=== PATIENT | female | born 1940 | race Caucasian/White ===

== ENCOUNTER 2017-05-02 06:55 | Outpatient (CLI) | payer MEDICARE ==
[~2017-05-02] VITALS: Ht 165.1 cm; Wt 78.9 kg
[~2017-05-02 06:55] MED LIST: ATOR20TA PO; CALC500T54 PO; CELE200C PO; IRON18TA PO; LISI10TA2 PO; LOVA40TA2 PO; MAGN400T3 PO; MELO15TA23 PO; MULT-658 PO; OMEP40CA5 PO; PANT40TA3 PO; Sodium Bicarbonate PO; TRIA1CAP3 PO; WARF-78 PO
[2017-05-02] MEDS ORDERED: TRIA50CA PO (07:33)
[2017-05-02] MEDS ORDERED: OMEP40CA5 PO (07:33)
[2017-05-02] MEDS ORDERED: CALC1TAB75 PO (07:33)
[2017-05-02] MEDS ORDERED: LISI-338 PO (07:33)
[2017-05-02] MEDS ORDERED: LOVA40TA2 PO (07:33)
[2017-05-02 07:48] VITALS: BP 130/65
[2017-05-02] MEDS ORDERED: IOHEXOL 300 MG/ML 50 ML VIAL. ONE (07:50)
[2017-05-02] MEDS ORDERED: IOHEXOL 300 MG/ML 50 ML VIAL. INT CAT ONE (08:45)
--- NOTE | 2017-05-03 08:34 | RAD ---
Cholangiogram through pre-existing internal/external biliary drain 05/02/2017 Indication: Evaluate for residual cystic duct stump leak Discussion: Contrast was administered through the pre-existing internal/external drain under fluoroscopy. No evidence of cystic duct leak is identified. No evidence of other biliary leak is seen. Mild dilatation of the biliary tree appears to persist. Mild filling defects are present within the common bile duct, which could represent small stones or inspissated sludge. The latter is favored. This appears to be new since prior exam. Contrast is seen flowing through the catheter into the duodenum and also small amount of contrast is noted extending along the catheter through the distal common bile duct. We will cap the drainage she developed abdominal pain or fever. Patient should return in approximately one to 2 weeks for removal of the catheter over a wire, and a cholangiogram at that time to ensure distal common bile duct drainage and resolution of sludge within the common bile duct. Fluoroscopy time: 1.4 minutes Dose area product 6 lorenz centimeters squared
== END 2017-05-02 09:20 | disposition home or self-care (01) ==
LOC: INTRAD 06:55
PROVIDERS: ATTEND Surgery
DX: K80.50 Calculus of bile duct without cholangitis or cholecystitis without obstruction (principal); E78.00 Pure hypercholesterolemia, unspecified; K21.9 Gastro-esophageal reflux disease without esophagitis; I12.9 Hypertensive chronic kidney disease with stage 1 through stage 4 chronic kidney disease, or unspecified chronic kidney disease; E11.22 Type 2 diabetes mellitus with diabetic chronic kidney disease; N18.9 Chronic kidney disease, unspecified; M19.91 Primary osteoarthritis, unspecified site; Z90.49 Acquired absence of other specified parts of digestive tract; Z98.890 Other specified postprocedural states; Z87.39 Personal history of other diseases of the musculoskeletal system and connective tissue; Z90.710 Acquired absence of both cervix and uterus
CPT/HCPCS: 47531; Q9967

== ENCOUNTER 2017-05-15 07:52 | Outpatient (CLI) | payer MEDICARE ==
[2017-05-15] VITALS (7 sets, daily range): BP systolic 92–136; BP diastolic 46–73
[~2017-05-15 07:52] MED LIST changes: +CALC1TAB75 PO; +LISI-338 PO; +TRIA50CA PO
[2017-05-15] MEDS ORDERED: LIDOCAINE 1% / SOD BICARB 8.4% 20 ML VIAL. IJ ONE ×2 (08:37→08:45)
[2017-05-15] MEDS ORDERED: IOHEXOL 300 MG/ML 50 ML VIAL. ONE (08:37)
[2017-05-15] MEDS ORDERED: IOHEXOL 300 MG/ML 50 ML VIAL. IART ONE (08:45)
[2017-05-15] MEDS ORDERED: fentaNYL PF VIAL 100 MCG/2 ML VIAL ONE (09:10)
[2017-05-15] MEDS ORDERED: fentaNYL PF VIAL 100 MCG/2 ML VIAL IV ONE (09:30)
--- NOTE | 2017-05-17 08:28 | RAD ---
05/15/2017 1. Cholangiogram through pre-existing tube as well as through catheter within the common bile duct 2. Replacement of 10 Italian locking internal/external biliary drain Discussion: The patient is a 77-year-old female status post placement of an internal/external biliary drain for biliary leak at the cystic duct stump. Prior attempted ERCP was unsuccessful due to inability to cannulate the duct. Most recently the patient has been draining internally, with the drain capped. She presents for evaluation of possible drainage removal. The risks and benefits of the procedure were discussed the patient. A timeout procedure was performed. The right upper quadrant was prepped and draped using neck sterile barrier technique. Fluoroscopic evaluation demonstrates expected position of upper quadrant drainage catheter. Contrast was administered to the catheter demonstrated persistent biliary dilatation, particularly involving the common bile duct. There is blunting of the distal common bile duct and contrast does not freely flow from the common bile duct into the duodenum. Findings raise concern for a high-grade distal CBD stricture. An obstructing mass lesion cannot be completely excluded. The pre-existing drainage catheter was removed over a wire. A 7 Italian sheath was placed. Through this sheath a wire and angled catheter were advanced into the common bile duct. Cholangiogram performed from the common bile duct following removal of the drain. Findings appear similar to prior study with obstruction of distal common bile duct. There is mild persistent filling defect in the common bile duct which may represent inspissated sludge. Percutaneous biopsy instrumentation was not available during the exam. 10 Italian internal/external biliary drain was replaced. Findings were called to the referring surgeon. The patient may benefit from a follow-up endoscopy and ERCP with evaluation of the distal common bile duct possible including biopsies. A wire could be advanced through the pre-existing drainage catheter into the duodenum and a rendezvous procedure as necessary, as prior cannulation of the bile duct was difficult. FLUORO TIME: 8.2 MIN DOSE: 22 Gycm2 Impression: Distal common bile obstruction without free flow of contrast into the duodenum. Based on available imaging both benign and malignant strictures or possible. Internal/external drain was replaced. Consider endoscopy and ERCP for further evaluation as described. This could be performed as rendezvous procedure as described.
== END 2017-05-15 11:10 | disposition home or self-care (01) ==
LOC: INTRAD 07:52
PROVIDERS: ATTEND Surgery
DX: K83.8 Other specified diseases of biliary tract (principal); E78.00 Pure hypercholesterolemia, unspecified; I12.9 Hypertensive chronic kidney disease with stage 1 through stage 4 chronic kidney disease, or unspecified chronic kidney disease; E11.22 Type 2 diabetes mellitus with diabetic chronic kidney disease; N18.9 Chronic kidney disease, unspecified; M19.91 Primary osteoarthritis, unspecified site; D64.9 Anemia, unspecified; Z90.49 Acquired absence of other specified parts of digestive tract; Z98.890 Other specified postprocedural states; Z96.653 Presence of artificial knee joint, bilateral; Z96.642 Presence of left artificial hip joint; Z90.710 Acquired absence of both cervix and uterus
CPT/HCPCS: 47536; A4215; C1729; C1894; J0690; J1644; J3010; Q9967

== ENCOUNTER 2018-08-30 12:07 | Inpatient (IN) | payer MEDICARE ==
[~2018-08-30] VITALS: Ht 165.1 cm; Wt 83.9 kg
[2018-08-30 12:56] LABS: BASO # 0.1 x10^3/uL (0.0-0.2); BASO % 1 % (0-3); EOS # 0.1 x10^3/uL (0.0-0.7); EOS % 1 % (0-3); HEMATOCRIT 40.1 % (36.0-47.0); HEMOGLOBIN 13.3 g/dL (12.0-15.5); LYMPH % 40 % (24-48); MEAN CORPUSCULAR HEMOGLOBIN 32 pg (25-35); MEAN CORPUSCULAR HGB CONC 33 g/dL (31-37); MEAN CORPUSCULAR VOLUME 97 fL (79-100); MONO # 0.7 x10^3/uL (0.0-1.1); MONO % 7 % (0-9); NEUT # 5.1 x10^3uL (1.8-7.7); NEUT % 51 % (31-73); PLATELET COUNT 239 x10^3/uL (140-400); RED BLOOD COUNT 4.15 x10^6/uL (3.50-5.40); RED CELL DISTRIBUTION WIDTH 14.3 % (11.5-14.5)
[2018-08-30 13:06] LABS: CALCIUM 9.3 mg/dL (8.5-10.1); CREATININE 1.3 mg/dL (0.6-1.0); GFR 39.4; POTASSIUM 4.1 mmol/L (3.5-5.1)
--- NOTE | 2018-08-30 13:10 | PHYS DOC ---
Past Medical History Past Medical History: Anemia, Arthritis, Diabetes-Type II, Glaucoma, High Cholesterol, Hypertension, Other Additional Past Medical Histor: VIT D DIFICIENCY,GASTRIC ULCER, Past Surgical History: Cholecystectomy, Hip Replacement, Hysterectomy, Knee Replacement, Tonsillectomy, Other Additional Past Surgical Histo: CARPEL TUNNEL Alcohol Use: None Drug Use: None Adult General Chief Complaint Chief Complaint: Palpitations HPI HPI Patient is a 78 year old female who presents with episodic palpitations, anorexia, nausea and loose stools x3days. Reports a near syncopal episode today after grocery shopping. She felt a heavy episode of palpitations and then she almost passed out while sitting in her car she did not do so however really she still denying any chest pain No cardiac history or history of similar symptoms. Describes palpitations as feeling as though her heart is "pounding out of her chest." Denies chest pain, shortness of breath, abdominal pain, fever, chills or vomiting. No recent illness or sick contacts. Review of Systems Review of Systems Constitutional: Denies fever or chills [] GI: Denies abdominal pain, nausea, vomiting, bloody stools or diarrhea [] : Denies dysuria or hematuria [] Musculoskeletal: Denies back pain or joint pain [] Integument: Denies rash or skin lesions [] Neurologic: Denies headache, focal weakness or sensory changes [] Endocrine: Denies polyuria or polydipsia [] All other systems were reviewed and found to be within normal limits, except as documented in this note. Current Medications Current Medications Current Medications Medications (Trade) Dose Ordered Sig/[facility] Start Time Stop Time Status Last Admin Dose Admin Metoprolol Tartrate (Lopressor) 50 mg 1X ONCE 08/30/18 13:30 08/30/18 13:31 DC 08/30/18 13:49 50 MG Allergies Allergies Allergies Coded Allergies Type Severity Reaction Last Updated Verified No Known Drug Allergies 03/23/17 No Physical Exam Physical Exam Constitutional: Well developed, well nourished, no acute distress, non-toxic appearance. [] HENT: Normocephalic, atraumatic, bilateral external ears normal, oropharynx moist, no oral exudates, nose normal. [] Eyes: PERRLA, EOMI, conjunctiva normal, no discharge. [] Neck: Normal range of motion, no tenderness, supple, no stridor. [] Cardiovascular:Heart rate irregular rhythm, no murmur []INTERMITTENT TACHYCARDIA ON EXAM. Lungs & Thorax: Bilateral breath sounds clear to auscultation [] Abdomen: Bowel sounds normal, soft, no tenderness, no masses, no pulsatile masses. [] Skin: Warm, dry, no erythema, no rash. [] Back: No tenderness, no CVA tenderness. [] Extremities: No tenderness, no cyanosis, no clubbing, ROM intact, no edema. [] Neurologic: Alert and oriented X 3, normal motor function, normal sensory function, no focal deficits noted. [] Psychologic: Affect normal, judgement normal, mood normal. [] Current Patient Data Vital Signs Vital Signs Date Time Temp Pulse Resp B/P (MAP) Pulse Ox O2 Delivery O2 Flow Rate FiO2 08/30/18 13:49 66 116/63 08/30/18 13:48 18 97 Room Air 08/30/18 12:24 98.6 98.6 Lab Values Laboratory Tests Test 08/30/18 12:30 White Blood Count 10.0 x10^3/uL (4.0-11.0) Red Blood Count 4.15 x10^6/uL (3.50-5.40) Hemoglobin 13.3 g/dL (12.0-15.5) Hematocrit 40.1 % (36.0-47.0) Mean Corpuscular Volume 97 fL (79-100) Mean Corpuscular Hemoglobin 32 pg (25-35) Mean Corpuscular Hemoglobin Concent 33 g/dL (31-37) Red Cell Distribution Width 14.3 % (11.5-14.5) Platelet Count 239 x10^3/uL (140-400) Neutrophils (%) (Auto) 51 % (31-73) Lymphocytes (%) (Auto) 40 % (24-48) Monocytes (%) (Auto) 7 % (0-9) Eosinophils (%) (Auto) 1 % (0-3) Basophils (%) (Auto) 1 % (0-3) Neutrophils # (Auto) 5.1 x10^3uL (1.8-7.7) Lymphocytes # (Auto) 4.0 x10^3/uL (1.0-4.8) Monocytes # (Auto) 0.7 x10^3/uL (0.0-1.1) Eosinophils # (Auto) 0.1 x10^3/uL (0.0-0.7) Basophils # (Auto) 0.1 x10^3/uL (0.0-0.2) Sodium Level 142 mmol/L (136-145) Potassium Level 4.1 mmol/L (3.5-5.1) Chloride Level 104 mmol/L (98-107) Carbon Dioxide Level 25 mmol/L (21-32) Anion Gap 13 (6-14) Blood Urea Nitrogen 30 mg/dL (7-20) H Creatinine 1.3 mg/dL (0.6-1.0) H Estimated GFR (Cockcroft-Gault) 39.4 BUN/Creatinine Ratio 23 (6-20) H Glucose Level 88 mg/dL (70-99) Calcium Level 9.3 mg/dL (8.5-10.1) Magnesium Level 2.0 mg/dL (1.8-2.4) Total Bilirubin 0.6 mg/dL (0.2-1.0) Aspartate Amino Transferase (AST) 17 U/L (15-37) Alanine Aminotransferase (ALT) 19 U/L (14-59) Alkaline Phosphatase 63 U/L (46-116) Troponin I Quantitative < 0.017 ng/mL (0.000-0.055) Total Protein 7.3 g/dL (6.4-8.2) Albumin 3.7 g/dL (3.4-5.0) Albumin/Globulin Ratio 1.0 (1.0-1.7) Thyroid Stimulating Hormone (TSH) 1.446 uIU/mL (0.358-3.74) Laboratory Tests 08/30/18 12:30 Laboratory Tests 08/30/18 12:30 EKG EKG NSR HR 89 5 beat run of narrow complex tachycardia with visible p waves of variable morphology. During the ER course, ekg monitor shows intermittent runs of narrow complex tachycardia with rates in the 150s, is self-resolving, and patient is symptomatic during these episodes.[] Radiology/Procedures Radiology/Procedures [] Impressions: FINDINGS: The cardiac silhouette is unremarkable. The lungs are clear bilaterally. The costophrenic sulci are clear and well demarcated. IMPRESSION: No radiographic evidence of an acute cardiopulmonary process. Electronically signed by: Tad Ruth MD (08/30/2018 1:23 PM) [facility] DICTATED and SIGNED BY: TAD RUTH MD DATE: 08/30/18 132 Course & Med Decision Making Course & Med Decision Making Pt is a 78 year old female with past medical history of hypertension and hyperlipidemia presents with symptomatic, episodic narrow complex tachycardia and near syncope today in the setting of 3 days of anorexia and decreased fluid intake. R/o cardiac origin, infection, electrolyte disturbance, hyperthyroid, dehydration. Pertinent Labs and Imaging studies reviewed. (See chart for details) Plan: EKG CXR CBC, CMP TSH UA IVF FINAL PLAN: Patient having intermittent runs of tachycardia perhaps this is A. fib or SVT it is a little hard to tell the ekg monitor he does self resolved but she is symptomatic during the episodes I think she should be admitted overnight for telemetry monitoring cardiology consultation etc. I did give her an oral dose of metoprolol I spoke with Dr. Chase from the hospital service at 2:30 PM. [] Dragon Disclaimer Dragon Disclaimer This electronic medical record was generated, in whole or in part, using a voice recognition dictation system. Departure Departure Impression: Primary Impression: Palpitations Disposition: ADMITTED INPATIENT Admitting Physician: Cecille Harris Condition: STABLE Referrals: MICHAELA SALGADO DO (PCP) RODRIGUEZ GODDARD MD Aug 30, 2018 13:10
[2018-08-30 13:11] LABS: ALBUMIN 3.7 g/dL (3.4-5.0); TOTAL BILIRUBIN 0.6 mg/dL (0.2-1.0); TOTAL PROTEIN 7.3 g/dL (6.4-8.2)
--- NOTE | 2018-08-30 13:25 | RAD ---
EXAM: CHEST 1 VIEW History: Shortness of breath COMPARISON: None available. TECHNIQUE: Single portable radiograph of the chest FINDINGS: The cardiac silhouette is unremarkable. The lungs are clear bilaterally. The costophrenic sulci are clear and well demarcated. IMPRESSION: No radiographic evidence of an acute cardiopulmonary process. Electronically signed by: Tad Ruth MD (08/30/2018 1:23 PM) [place] [id number]
[2018-08-30] MEDS ORDERED: METOPROLOL TART IMMED RELEASE 50 MG TABLET. PO ONE (13:30)
[2018-08-30] MEDS ORDERED: ASPIRIN CHEWABLE 81 MG TABLET. PO ONE (14:45)
[2018-08-30 14:46] LABS: BILIRUBIN,URINE NEGATIVE (NEG); CLARITY,URINE CLEAR; COLOR,URINE YELLOW; NITRITE,URINE NEGATIVE (NEG); PROTEIN,URINE NEGATIVE (NEG-TRACE)
[2018-08-30 15:34] LABS: BACTERIA,URINE 0 /HPF (0-FEW); SQUAMOUS EPITHELIAL CELL,UR FEW /LPF
[2018-08-30] MEDS ORDERED: PANT40GR PO (15:50)
[2018-08-30] MEDS ORDERED: LATA2.5D3 EACHEYE (15:50)
[2018-08-30 18:00] VITALS: BP 130/71
--- NOTE | 2018-08-30 18:33 | HP ---
ADMIT DATE: 08/30/2018 CHIEF COMPLAINT: Palpitations and near syncope. HISTORY OF PRESENT ILLNESS: The patient is a pleasant 78-year-old female who had palpitations. She had some nausea and some anorexia for 3 days. She reports a near syncopal episode after grocery shopping. She had some left-sided palpitations and some heaviness, describes it as a pounding in her chest, rated 9/10. I have discussed the case with the ER physician. We are going to admit the patient and consult Cardiology. PAST MEDICAL HISTORY: Anemia, arthritis, diabetes, hypertension, glaucoma, vitamin D deficiency, ulcers, hip replacement, hysterectomy, knee replacement, tonsillectomy, carpal tunnel. ALLERGIES: None. FAMILY HISTORY: Coronary artery disease. SOCIAL HISTORY: She does not drink, smoke or take drugs. She is retired. Her has dementia and she is under a lot of stress, she states. MEDICATIONS: Reviewed. She is on lovastatin, lisinopril, calcium, Protonix. REVIEW OF SYSTEMS: GENERAL: No history of weight change, weakness or fevers. SKIN: No bruising, hair changes or rashes. EYES: No blurred, double or loss of vision. NOSE AND THROAT: No history of nosebleeds, hoarseness or sore throat. HEART: No history of palpitations, chest pain or shortness of breath on exertion. LUNGS: Denies cough, hemoptysis, wheezing or shortness of breath. GASTROINTESTINAL: Denies changes in appetite, nausea, vomiting, diarrhea or constipation. GENITOURINARY: No history of frequency, urgency, hesitancy or nocturia. NEUROLOGIC: She complains of weakness. PSYCHIATRIC: No history of panic, anxiety or depression. ENDOCRINE: No history of heat or cold intolerance, polyuria or polydipsia. EXTREMITIES: Denies muscle weakness, joint pain, pain on walking or stiffness. PHYSICAL EXAMINATION: VITAL SIGNS: Temperature afebrile, pulse 60, respirations 18, blood pressure 140/91. GENERAL: She is alert, cooperative. Her daughter is present. She is good support for her. HEART: Normal S1, S2. LUNGS: Clear. ABDOMEN: Soft. EXTREMITIES: No edema. SKIN: No rashes. ENDOCRINE: No thyromegaly. LYMPHATICS: No cervical nodes. HEMATOPOIETIC: No bruising. PSYCHIATRIC: She is depressed. LABORATORY DATA: Hematology is normal. Electrolytes are normal other than a BUN of 30 and a creatinine of 1.3. ASSESSMENT AND PLAN: Near syncope. The patient is being admitted. She does have some azotemia. We will go ahead and consult Dr. Carlson. IV hydration. Consult Neurology, consult Cardiology. Home meds, PT, OT, frequent labs. CHRISTINA LANDERS DO DR: JIN/renny JOB#: [id number] / [id number]
[2018-08-30] MEDS ORDERED: LATANOPROST 0.005% OPHTH SOLUTION 2.5ML BOTTLE. OU SCH (21:00)
[2018-08-30] MEDS: ATORVASTATIN CALCIUM 10 MG TABLET. PO SCH (21:05)
[2018-08-30 23:46] VITALS: BP 140/70
[2018-08-31] VITALS (8 sets, daily range): BP systolic 101–133; BP diastolic 41–61
[2018-08-31] MEDS ORDERED: PANTOPRAZOLE 40 MG TABLET.DR. PO SCH (09:00)
--- NOTE | 2018-08-31 09:18 | PDOC2 ---
NEUROLOGY CONSULT Date of Admission Date of Admission DATE: 08/31/18 TIME: 09:11 Reason for Consult Reason for Consult: Presyncope Referring Physician Referring Physician: Dr. Harris Source Source: Chart review, Patient History of Present Illness History of Present Illness The patient is an 78-year-old right-handed female who for the past 3 days has had some palpitations. She denies prior history of this. Yesterday she became very lightheaded during the palpitation. There was no loss of consciousness. There were no symptoms of any neurological issue. Specifically, the patient had no numbness, weakness, diplopia, dysphagia, dysarthria, cognitive change. There is no history of stroke, seizure, or head injury. Past Medical History Cardiovascular: HTN, Hyperlipidemia GI: GERD, Peptic Ulcer disease Heme/Onc: Anemia NOS Musculoskeletal: low back pain ( degenerative disc disease), Osteoarthritis ENT: Other (Glaucoma) Renal/: Acute renal failure Endocrine: Diabetes ( borderline), Osteoporosis Past Surgical History Past Surgical History: Cholecystectomy, Cataract Removal, Total hip replacement ( right), Total knee replacement ( right knee times 2), Tonsillectomy ( adenoidectomy), Hysterectomy, Other ( perforated duodenal ulcer , lumbar, carpal tunnel) Family History Family History: CAD Current Medications Current Medications Current Medications Metoprolol Tartrate (Lopressor) 50 mg 1X ONCE PO Last administered on at 13:49; Start 08/30/18 at 13:30; Stop 08/30/18 at 13:31; Status DC Aspirin (Children'S Aspirin) 324 mg 1X ONCE PO Last administered on 08/30/18at 17:06; Start 08/30/18 at 14:45; Stop 08/30/18 at 14:46; Status DC Calcium/Vitamin D (Oscal D 500mg/ 200uts) 1 tab DAILY PO ; Start 08/31/18 at 09: 00 Latanoprost (Xalatan) 1 drop QHS OU ; Start 08/30/18 at 21:00 Lisinopril (Prinivil) 5 mg DAILY PO ; Start 08/31/18 at 09:00 Atorvastatin Calcium (Lipitor) 10 mg QHS PO Last administered on 08/30/18at 21: 05; Start 08/30/18 at 21:00 Pantoprazole Sodium (Protonix) 40 mg 3X/WEEK PO ; Start 08/31/18 at 09:00 Active Scripts Active Reported Latanoprost 2.5 Ml Drops 1 Drop EACHEYE QHS Protonix (Pantoprazole Sodium) 40 Mg Granpkt.dr 40 Mg PO 3X/WEEK Calcium 600 + Vit D 200 Tablet (Calcium Carbonate/Vitamin D3) 1 Each Tablet 1 Each PO DAILY Lovastatin 40 Mg Tablet 40 Mg PO HS Lisinopril 5 Mg Tablet 5 Mg PO DAILY Allergies Allergies: Coded Allergies: No Known Drug Allergies (Unverified , 03/23/17) ROS Review of System Negative for fever, chills, weight loss, shortness of breath, chest pain, indigestion, hematochezia, melena, and dysuria. Full 14-point review of systems is negative. Physical Exam Physical Examination General: Well-developed, well-nourished white female in no acute distress HEENT: Normocephalic andatraumatic. Temporal arteriespulsatile and nontender. Neck: Supple without bruit, no meningismus Musculoskeletal: Stability:see neurologic. Gait exam:see neurologic. Tone:see neurologic. Strength:see neurologic. Neurological: Mental Status:intact, orientation, memory, attention span/concentration, language, fund of knowledge normal. Cranial Nerves:Pupils equal and reactive to light, extraocular movements areintact, visual olguin are full to confrontation. Facial sensation is normal. There is no facial asymmetry. Vestibulo-ocular reflex is intact. Palate elevates and tongue protrudes in midline. All other cranial related problems are negative except as mentioned before.Reflexes:2+ and symmetric with flexor plantar responses. Motor:5/5 strength with normal tone and bulk. Coordination:Finger-nose finger and heel-to -matos testing are normal. Rapid alternating movements and fine finger movements are intact. Gait:Normal, including tandem. Sensory:Normal pinprick, vibration , light touch, proprioception. Vitals VITALS Vital Signs Date Time Temp Pulse Resp B/P (MAP) Pulse Ox O2 Delivery O2 Flow Rate FiO2 08/31/18 07:00 97.8 75 18 133/46 (75) 97 Room Air 97.8 Labs Labs Laboratory Tests Test 08/30/18 12:30 08/30/18 14:35 08/30/18 18:00 08/30/18 21:30 White Blood Count 10.0 x10^3/uL (4.0-11.0) Red Blood Count 4.15 x10^6/uL (3.50-5.40) Hemoglobin 13.3 g/dL (12.0-15.5) Hematocrit 40.1 % (36.0-47.0) Mean Corpuscular Volume 97 fL (79-100) Mean Corpuscular Hemoglobin 32 pg (25-35) Mean Corpuscular Hemoglobin Concent 33 g/dL (31-37) Red Cell Distribution Width 14.3 % (11.5-14.5) Platelet Count 239 x10^3/uL (140-400) Neutrophils (%) (Auto) 51 % (31-73) Lymphocytes (%) (Auto) 40 % (24-48) Monocytes (%) (Auto) 7 % (0-9) Eosinophils (%) (Auto) 1 % (0-3) Basophils (%) (Auto) 1 % (0-3) Neutrophils # (Auto) 5.1 x10^3uL (1.8-7.7) Lymphocytes # (Auto) 4.0 x10^3/uL (1.0-4.8) Monocytes # (Auto) 0.7 x10^3/uL (0.0-1.1) Eosinophils # (Auto) 0.1 x10^3/uL (0.0-0.7) Basophils # (Auto) 0.1 x10^3/uL (0.0-0.2) Sodium Level 142 mmol/L (136-145) Potassium Level 4.1 mmol/L (3.5-5.1) Chloride Level 104 mmol/L (98-107) Carbon Dioxide Level 25 mmol/L (21-32) Anion Gap 13 (6-14) Blood Urea Nitrogen 30 mg/dL (7-20) Creatinine 1.3 mg/dL (0.6-1.0) Estimated GFR (Cockcroft-Gault) 39.4 BUN/Creatinine Ratio 23 (6-20) Glucose Level 88 mg/dL (70-99) Calcium Level 9.3 mg/dL (8.5-10.1) Magnesium Level 2.0 mg/dL (1.8-2.4) Total Bilirubin 0.6 mg/dL (0.2-1.0) Aspartate Amino Transf (AST/SGOT) 17 U/L (15-37) Alanine Aminotransferase (ALT/SGPT) 19 U/L (14-59) Alkaline Phosphatase 63 U/L (46-116) Troponin I Quantitative < 0.017 ng/mL (0.000-0.055) < 0.017 ng/mL (0.000-0.055) < 0.017 ng/mL (0.000-0.055) Total Protein 7.3 g/dL (6.4-8.2) Albumin 3.7 g/dL (3.4-5.0) Albumin/Globulin Ratio 1.0 (1.0-1.7) Thyroid Stimulating Hormone (TSH) 1.446 uIU/mL (0.358-3.74) Urine Collection Type Unknown Urine Color Yellow Urine Clarity Clear Urine pH 7.0 Urine Specific [place] 1.015 Urine Protein Negative mg/dL (NEG-TRACE) Urine Glucose (UA) Negative mg/dL (NEG) Urine Ketones (Stick) 15 mg/dL (NEG) Urine Blood Negative (NEG) Urine Nitrite Negative (NEG) Urine Bilirubin Negative (NEG) Urine Urobilinogen Dipstick 1.0 mg/dL (0.2 mg/dL) Urine Leukocyte Esterase Trace (NEG) Urine RBC 6-10 /HPF (0-2) Urine WBC 1-4 /HPF (0-4) Urine Squamous Epithelial Cells Few /LPF Urine Bacteria 0 /HPF (0-FEW) Urine Mucus Slight /LPF Laboratory Tests Test 08/30/18 12:30 08/30/18 14:35 08/30/18 18:00 08/30/18 21:30 White Blood Count 10.0 x10^3/uL (4.0-11.0) Red Blood Count 4.15 x10^6/uL (3.50-5.40) Hemoglobin 13.3 g/dL (12.0-15.5) Hematocrit 40.1 % (36.0-47.0) Mean Corpuscular Volume 97 fL (79-100) Mean Corpuscular Hemoglobin 32 pg (25-35) Mean Corpuscular Hemoglobin Concent 33 g/dL (31-37) Red Cell Distribution Width 14.3 % (11.5-14.5) Platelet Count 239 x10^3/uL (140-400) Neutrophils (%) (Auto) 51 % (31-73) Lymphocytes (%) (Auto) 40 % (24-48) Monocytes (%) (Auto) 7 % (0-9) Eosinophils (%) (Auto) 1 % (0-3) Basophils (%) (Auto) 1 % (0-3) Neutrophils # (Auto) 5.1 x10^3uL (1.8-7.7) Lymphocytes # (Auto) 4.0 x10^3/uL (1.0-4.8) Monocytes # (Auto) 0.7 x10^3/uL (0.0-1.1) Eosinophils # (Auto) 0.1 x10^3/uL (0.0-0.7) Basophils # (Auto) 0.1 x10^3/uL (0.0-0.2) Sodium Level 142 mmol/L (136-145) Potassium Level 4.1 mmol/L (3.5-5.1) Chloride Level 104 mmol/L (98-107) Carbon Dioxide Level 25 mmol/L (21-32) Anion Gap 13 (6-14) Blood Urea Nitrogen 30 mg/dL (7-20) Creatinine 1.3 mg/dL (0.6-1.0) Estimated GFR (Cockcroft-Gault) 39.4 BUN/Creatinine Ratio 23 (6-20) Glucose Level 88 mg/dL (70-99) Calcium Level 9.3 mg/dL (8.5-10.1) Magnesium Level 2.0 mg/dL (1.8-2.4) Total Bilirubin 0.6 mg/dL (0.2-1.0) Aspartate Amino Transf (AST/SGOT) 17 U/L (15-37) Alanine Aminotransferase (ALT/SGPT) 19 U/L (14-59) Alkaline Phosphatase 63 U/L (46-116) Troponin I Quantitative < 0.017 ng/mL (0.000-0.055) < 0.017 ng/mL (0.000-0.055) < 0.017 ng/mL (0.000-0.055) Total Protein 7.3 g/dL (6.4-8.2) Albumin 3.7 g/dL (3.4-5.0) Albumin/Globulin Ratio 1.0 (1.0-1.7) Thyroid Stimulating Hormone (TSH) 1.446 uIU/mL (0.358-3.74) Urine Collection Type Unknown Urine Color Yellow Urine Clarity Clear Urine pH 7.0 Urine Specific [place] 1.015 Urine Protein Negative mg/dL (NEG-TRACE) Urine Glucose (UA) Negative mg/dL (NEG) Urine Ketones (Stick) 15 mg/dL (NEG) Urine Blood Negative (NEG) Urine Nitrite Negative (NEG) Urine Bilirubin Negative (NEG) Urine Urobilinogen Dipstick 1.0 mg/dL (0.2 mg/dL) Urine Leukocyte Esterase Trace (NEG) Urine RBC 6-10 /HPF (0-2) Urine WBC 1-4 /HPF (0-4) Urine Squamous Epithelial Cells Few /LPF Urine Bacteria 0 /HPF (0-FEW) Urine Mucus Slight /LPF Assessment/Plan Assessment/Plan Impression: Palpitations due to cardiac issues. As I was examining her, she complained of palpitations, but telemetry was normal. Nothing in her history or exam speaks to any type of neurological issue. Recommendations: Neurology signs off, but please renotify if issues develop Cardiology workup Thank you for letting me help with the patient's care. JONA LAUREANO MD Aug 31, 2018 09:18
--- NOTE | 2018-08-31 10:12 | PDOC2 ---
DUNG BUCKNER TELEMETRY TECHNICIAN 08/31/18 1012: CARDIAC CONSULT DATE OF CONSULT Date of Consult DATE: 08/31/18 TIME: 10:12 REASON FOR CONSULT Reason for Consult: Palpitations Tachycardia REFERRING PHYSICIAN Referring Physician: Dr. Hawthorne SOURCE Source: Chart review, Patient HISTORY OF PRESENT ILLNESS HISTORY OF PRESENT ILLNESS The is a 78 yo female who presented secondary to palpitations and near syncopal episode. Patient reports that she began experiencing palpitations this past Tuesdays. Have become more frequent. Was at the grocery store with yesterday. Had multiple episode of palpitations while shopping. Unloaded groceries into the car. Sat down and had another episode of strong palpitations. [place] slightly nauseated and then began to feel dizzy; began to "fade out." Thought she was going to pass out, but did not loose consciousness. Decided to come to the ED for further evaluation and treatment. Denies any associated chest pain, shortness of breath, diaphoresis, or LE edema. PAST MEDICAL HISTORY Cardiovascular: HTN, Hyperlipidemia Pulmonary: No pertinent hx CENTRAL NERVOUS SYSTEM: Other (no pertinent hx) GI: GERD Heme/Onc: Anemia NOS Hepatobiliary: No pertinent hx Psych: No pertinent hx Musculoskeletal: Osteoarthritis, Other (DDD) Infectious disease: No pertinent hx ENT: No pertinent hx Renal/: Acute renal failure Endocrine: Diabetes Dermatology: No pertinent hx PAST SURGICAL HISTORY Past Surgical History: Appendectomy, Cholecystectomy, Cataract Removal, Total hip replacement (right ), Total knee replacement (bilateral ), Tonsillectomy, Colon Resection, Other (back surgery) FAMILY HISTORY Family History: Hypertension SOCIAL HISTORY Smoke: No ALCOHOL: none Drugs: None Lives: with Family CURRENT MEDICATIONS CURRENT MEDICATIONS Current Medications Medications (Trade) Dose Ordered Sig/Jes Route PRN Reason Start Time Stop Time Status Last Admin Dose Admin Metoprolol Tartrate (Lopressor) 50 mg 1X ONCE PO 08/30/18 13:30 08/30/18 13:31 DC 08/30/18 13:49 Aspirin (Children'S Aspirin) 324 mg 1X ONCE PO 08/30/18 14:45 08/30/18 14:46 DC 08/30/18 17:06 Atorvastatin Calcium (Lipitor) 10 mg QHS PO 08/30/18 21:00 08/30/18 21:05 ALLERGIES ALLERGIES: Coded Allergies: No Known Drug Allergies (Unverified , 03/23/17) ROS Review of System 14 point ROS conducted with pertinent positives noted in HPI PHYSICAL EXAM General: Alert, Oriented X3, Cooperative, No acute distress HEENT: Atraumatic, Mucous membr. moist/pink Lungs: Clear to auscultation, Normal air movement Heart: Regular rate, Normal S1, Normal S2, No murmurs Abdomen: Soft, No tenderness Extremities: No edema, Normal pulses Skin: No breakdown, No significant lesion Neuro: Normal speech, Sensation intact Psych/Mental Status: Mental status NL, Mood NL MUSCULOSKELETAL: Osteoarthritic changes both hands VITALS VITALS Vital Signs Date Time Temp Pulse Resp B/P (MAP) Pulse Ox O2 Delivery O2 Flow Rate FiO2 08/31/18 09:12 86 127/61 (83) 08/31/18 07:00 97.8 18 97 Room Air 97.8 LABS Lab: Laboratory Tests Test 08/30/18 12:30 08/30/18 14:35 08/30/18 18:00 08/30/18 21:30 White Blood Count 10.0 x10^3/uL (4.0-11.0) Red Blood Count 4.15 x10^6/uL (3.50-5.40) Hemoglobin 13.3 g/dL (12.0-15.5) Hematocrit 40.1 % (36.0-47.0) Mean Corpuscular Volume 97 fL (79-100) Mean Corpuscular Hemoglobin 32 pg (25-35) Mean Corpuscular Hemoglobin Concent 33 g/dL (31-37) Red Cell Distribution Width 14.3 % (11.5-14.5) Platelet Count 239 x10^3/uL (140-400) Neutrophils (%) (Auto) 51 % (31-73) Lymphocytes (%) (Auto) 40 % (24-48) Monocytes (%) (Auto) 7 % (0-9) Eosinophils (%) (Auto) 1 % (0-3) Basophils (%) (Auto) 1 % (0-3) Neutrophils # (Auto) 5.1 x10^3uL (1.8-7.7) Lymphocytes # (Auto) 4.0 x10^3/uL (1.0-4.8) Monocytes # (Auto) 0.7 x10^3/uL (0.0-1.1) Eosinophils # (Auto) 0.1 x10^3/uL (0.0-0.7) Basophils # (Auto) 0.1 x10^3/uL (0.0-0.2) Sodium Level 142 mmol/L (136-145) Potassium Level 4.1 mmol/L (3.5-5.1) Chloride Level 104 mmol/L (98-107) Carbon Dioxide Level 25 mmol/L (21-32) Anion Gap 13 (6-14) Blood Urea Nitrogen 30 mg/dL (7-20) Creatinine 1.3 mg/dL (0.6-1.0) Estimated GFR (Cockcroft-Gault) 39.4 BUN/Creatinine Ratio 23 (6-20) Glucose Level 88 mg/dL (70-99) Calcium Level 9.3 mg/dL (8.5-10.1) Magnesium Level 2.0 mg/dL (1.8-2.4) Total Bilirubin 0.6 mg/dL (0.2-1.0) Aspartate Amino Transf (AST/SGOT) 17 U/L (15-37) Alanine Aminotransferase (ALT/SGPT) 19 U/L (14-59) Alkaline Phosphatase 63 U/L (46-116) Troponin I Quantitative < 0.017 ng/mL (0.000-0.055) < 0.017 ng/mL (0.000-0.055) < 0.017 ng/mL (0.000-0.055) Total Protein 7.3 g/dL (6.4-8.2) Albumin 3.7 g/dL (3.4-5.0) Albumin/Globulin Ratio 1.0 (1.0-1.7) Thyroid Stimulating Hormone (TSH) 1.446 uIU/mL (0.358-3.74) Urine Collection Type Unknown Urine Color Yellow Urine Clarity Clear Urine pH 7.0 Urine Specific [place] 1.015 Urine Protein Negative mg/dL (NEG-TRACE) Urine Glucose (UA) Negative mg/dL (NEG) Urine Ketones (Stick) 15 mg/dL (NEG) Urine Blood Negative (NEG) Urine Nitrite Negative (NEG) Urine Bilirubin Negative (NEG) Urine Urobilinogen Dipstick 1.0 mg/dL (0.2 mg/dL) Urine Leukocyte Esterase Trace (NEG) Urine RBC 6-10 /HPF (0-2) Urine WBC 1-4 /HPF (0-4) Urine Squamous Epithelial Cells Few /LPF Urine Bacteria 0 /HPF (0-FEW) Urine Mucus Slight /LPF ASSESSMENT/PLAN ASSESSMENT/PLAN 1. Near syncope; arrhythmia induced 2. Palpitations; telemetry noted with SR, SB, and, paroxysmal atrial tachycardia. Echo with normal LV systolic function and no significant valvular disease. TSH WNL 3. Hypertension; controlled 4. Hyperlipidemia 5. CKD Recommendations Will start flecainide for rhythm maintenance and low-dose metoprolol for rate control Monitor rhythm overnight Consider pacemaker implantation if significantly bradycardic with above or PAT persists CATALINA MCCOY MD 08/31/181950: CARDIAC CONSULT ASSESSMENT/PLAN ASSESSMENT/PLAN Pt. seen and examined. Agree with above Clinical Services Consultant note. Paroxysmal tachycardia - svt No clear afib. Continue flecainide and metoprolol. DIscussed possibility of pacer. Will monitor overnight, if burden of arrhythmia less, then ok to DC and no driving until seen in f/u. discussed with patient. thanks DUNG BUCKNER APRN Aug 31, 2018 10:12 CATALINA MCCOY MD Aug 31, 2018 19:51
--- NOTE | 2018-08-31 11:35 | CARD ---
MR#: [id number] Date of Study: 08/31/2018 Ordering Physician: DUNG BUCKNER, Referring Physician: Maggie MCQUEEN: Chiquis Hercules CINDY APPROVED REPORT EXAM: Two-dimensional and M-mode echocardiogram with Doppler and color Doppler. Other Information Quality : AverageHR: 63bpm Rhythm : Other INDICATION Palpitations 2D DIMENSIONS RVDd2.5 (2.9-3.5cm)Left Atrium(2D)2.8 (1.6-4.0cm) IVSd0.9 (0.7-1.1cm)Aortic Root(2D)3.1 (2.0-3.7cm) LVDd5.8 (3.9-5.9cm)LVOT Diameter2.1 (1.8-2.4cm) PWd0.9 (0.7-1.1cm)LVDs3.7 (2.5-4.0cm) FS (%) 36.6 %SV109.9 ml LVEF(%)65.6 (>50%) M-Mode DIMENSIONS Left Atrium(MM)3.98 (2.5-4.0cm)Aortic Root3.16 (2.2-3.7cm) Aortic Valve AoV Peak Pieter.136.8cm/sAoV VTI33.3cm AO Peak GR.7.5mmHgLVOT Peak Pieter.99.4cm/s AO Mean GR.3mmHgAVA (VMAX)2.46cm2 PB (VTI)2.50cm2 Mitral Valve MV E [place]546.3cm/sMV DECEL YEFI987eg MV A Rsimmpcy90.2cm/sE/A Ratio2.1 Pulmonary Valve PV Peak Ltlxhonm58.0cm/s Tricuspid Valve TR P. Otxtasmo897mo/sRAP [id number] TR Peak Gr.80ysHgUTAX74czBh LEFT VENTRICLE The Left Ventricle is borderline dilated. There is normal left ventricular wall thickness. The left v entricular systolic function is normal and the ejection fraction is within normal range. The Ejection Fraction is 60-65%. There is normal LV segmental wall motion. Transmitral Doppler flow pattern is ab normal. RIGHT VENTRICLE The right ventricle is normal size. There is normal right ventricular wall thickness. The right ventr icular systolic function is normal. ATRIA The left atrium size is normal. The right atrium size is normal. The interatrial septum is intact wit h no evidence for an atrial septal defect or patent foramen ovale as noted on 2-D or Doppler imaging. AORTIC VALVE The aortic valve is normal in structure and function. The aortic valve is trileaflet. Doppler and Col or Flow revealed trace aortic regurgitation. There is no significant aortic valvular stenosis. MITRAL VALVE The mitral valve is normal in structure and function. There is no evidence of mitral valve prolapse. There is no mitral valve stenosis. Doppler and Color-flow revealed trace mitral regurgitation. TRICUSPID VALVE The tricuspid valve is normal in structure and function. Doppler and Color Flow revealed trace tricus pid regurgitation. The PA pressure was estimated at 29 mmHg. There is no tricuspid valve prolapse or vegetation. There is no tricuspid valve stenosis. PULMONIC VALVE The pulmonary valve is normal in structure and function. Doppler and Color Flow revealed no pulmonic valvular regurgitation. There is no pulmonic valvular stenosis. GREAT VESSELS The aortic root is normal in size. The ascending aorta is normal in size. The IVC is normal in size a nd collapses >50% with inspiration. PERICARDIAL EFFUSION There is no evidence of significant pericardial effusion. Critical Notification Critical Value: No <Conclusion> The left ventricular systolic function is normal and the ejection fraction is within normal range. Th e Ejection Fraction is 60-65%. There is normal LV segmental wall motion. Signed by : Fahad Cerrato, Electronically Approved : 08/31/2018 11:34:59
--- NOTE | 2018-08-31 11:52 | PDOC ---
PROGRESS NOTES Chief Complaint Chief Complaint Palpitations and near syncope History of Present Illness History of Present Illness pt seen and examined in her room with family bedside. no acute distress. admitted for palpitations and near syncopal episode after grocery store. additional symptoms included nausea/anorexia for 3 days. upon initial work-up - CXR clear. reports a near syncopal episode after grocery shopping. cardiology, nephrology, and neurology are following. undergoing additional work-up. appreciate sub-specialty input. Vitals Vitals Vital Signs Date Time Temp Pulse Resp B/P (MAP) Pulse Ox O2 Delivery O2 Flow Rate FiO2 08/31/18 11:10 97.4 96 18 115/58 (77) 96 Room Air 97.4 Physical Exam General: Alert, Oriented X3, Cooperative, No acute distress Heart: Regular rate, Normal S1, Normal S2, No murmurs Lungs: Clear, Other Abdomen: Normal bowel sounds, No tenderness, No hepatosplenomegaly Extremities: No clubbing, No cyanosis, No edema, No tenderness/swelling Skin: No rashes, No breakdown, No significant lesion Labs LABS Laboratory Tests Test 08/30/18 12:30 08/30/18 14:35 08/30/18 18:00 08/30/18 21:30 White Blood Count 10.0 x10^3/uL (4.0-11.0) Red Blood Count 4.15 x10^6/uL (3.50-5.40) Hemoglobin 13.3 g/dL (12.0-15.5) Hematocrit 40.1 % (36.0-47.0) Mean Corpuscular Volume 97 fL (79-100) Mean Corpuscular Hemoglobin 32 pg (25-35) Mean Corpuscular Hemoglobin Concent 33 g/dL (31-37) Red Cell Distribution Width 14.3 % (11.5-14.5) Platelet Count 239 x10^3/uL (140-400) Neutrophils (%) (Auto) 51 % (31-73) Lymphocytes (%) (Auto) 40 % (24-48) Monocytes (%) (Auto) 7 % (0-9) Eosinophils (%) (Auto) 1 % (0-3) Basophils (%) (Auto) 1 % (0-3) Neutrophils # (Auto) 5.1 x10^3uL (1.8-7.7) Lymphocytes # (Auto) 4.0 x10^3/uL (1.0-4.8) Monocytes # (Auto) 0.7 x10^3/uL (0.0-1.1) Eosinophils # (Auto) 0.1 x10^3/uL (0.0-0.7) Basophils # (Auto) 0.1 x10^3/uL (0.0-0.2) Sodium Level 142 mmol/L (136-145) Potassium Level 4.1 mmol/L (3.5-5.1) Chloride Level 104 mmol/L (98-107) Carbon Dioxide Level 25 mmol/L (21-32) Anion Gap 13 (6-14) Blood Urea Nitrogen 30 mg/dL (7-20) Creatinine 1.3 mg/dL (0.6-1.0) Estimated GFR (Cockcroft-Gault) 39.4 BUN/Creatinine Ratio 23 (6-20) Glucose Level 88 mg/dL (70-99) Calcium Level 9.3 mg/dL (8.5-10.1) Magnesium Level 2.0 mg/dL (1.8-2.4) Total Bilirubin 0.6 mg/dL (0.2-1.0) Aspartate Amino Transf (AST/SGOT) 17 U/L (15-37) Alanine Aminotransferase (ALT/SGPT) 19 U/L (14-59) Alkaline Phosphatase 63 U/L (46-116) Troponin I Quantitative < 0.017 ng/mL (0.000-0.055) < 0.017 ng/mL (0.000-0.055) < 0.017 ng/mL (0.000-0.055) Total Protein 7.3 g/dL (6.4-8.2) Albumin 3.7 g/dL (3.4-5.0) Albumin/Globulin Ratio 1.0 (1.0-1.7) Thyroid Stimulating Hormone (TSH) 1.446 uIU/mL (0.358-3.74) Urine Collection Type Unknown Urine Color Yellow Urine Clarity Clear Urine pH 7.0 Urine Specific [place] 1.015 Urine Protein Negative mg/dL (NEG-TRACE) Urine Glucose (UA) Negative mg/dL (NEG) Urine Ketones (Stick) 15 mg/dL (NEG) Urine Blood Negative (NEG) Urine Nitrite Negative (NEG) Urine Bilirubin Negative (NEG) Urine Urobilinogen Dipstick 1.0 mg/dL (0.2 mg/dL) Urine Leukocyte Esterase Trace (NEG) Urine RBC 6-10 /HPF (0-2) Urine WBC 1-4 /HPF (0-4) Urine Squamous Epithelial Cells Few /LPF Urine Bacteria 0 /HPF (0-FEW) Urine Mucus Slight /LPF Review of Systems Review of Systems general: no fever, no chills, no acute distress. cardiac: +palpitations, no chest pain, no arrhythmia, no murmur respiratory: no shortness of breath, no wheezing, no rhonchi/rales/crackles. Assessment and Plan Assessmemt and Plan Assessment 1. Near syncope 2. Palpitations 3. Azotemia Plan 1. IV hydration 2. monitor labs 3. home meds 4. PT/OT 5. awaiting cardiology input 6. nephrology, cardiology, neurology following Comment Review of Relevant I have reviewed the following items [place] (where applicable) has been applied. Labs Laboratory Tests Test 08/30/18 12:30 08/30/18 14:35 08/30/18 18:00 08/30/18 21:30 White Blood Count 10.0 x10^3/uL (4.0-11.0) Red Blood Count 4.15 x10^6/uL (3.50-5.40) Hemoglobin 13.3 g/dL (12.0-15.5) Hematocrit 40.1 % (36.0-47.0) Mean Corpuscular Volume 97 fL (79-100) Mean Corpuscular Hemoglobin 32 pg (25-35) Mean Corpuscular Hemoglobin Concent 33 g/dL (31-37) Red Cell Distribution Width 14.3 % (11.5-14.5) Platelet Count 239 x10^3/uL (140-400) Neutrophils (%) (Auto) 51 % (31-73) Lymphocytes (%) (Auto) 40 % (24-48) Monocytes (%) (Auto) 7 % (0-9) Eosinophils (%) (Auto) 1 % (0-3) Basophils (%) (Auto) 1 % (0-3) Neutrophils # (Auto) 5.1 x10^3uL (1.8-7.7) Lymphocytes # (Auto) 4.0 x10^3/uL (1.0-4.8) Monocytes # (Auto) 0.7 x10^3/uL (0.0-1.1) Eosinophils # (Auto) 0.1 x10^3/uL (0.0-0.7) Basophils # (Auto) 0.1 x10^3/uL (0.0-0.2) Sodium Level 142 mmol/L (136-145) Potassium Level 4.1 mmol/L (3.5-5.1) Chloride Level 104 mmol/L (98-107) Carbon Dioxide Level 25 mmol/L (21-32) Anion Gap 13 (6-14) Blood Urea Nitrogen 30 mg/dL (7-20) Creatinine 1.3 mg/dL (0.6-1.0) Estimated GFR (Cockcroft-Gault) 39.4 BUN/Creatinine Ratio 23 (6-20) Glucose Level 88 mg/dL (70-99) Calcium Level 9.3 mg/dL (8.5-10.1) Magnesium Level 2.0 mg/dL (1.8-2.4) Total Bilirubin 0.6 mg/dL (0.2-1.0) Aspartate Amino Transf (AST/SGOT) 17 U/L (15-37) Alanine Aminotransferase (ALT/SGPT) 19 U/L (14-59) Alkaline Phosphatase 63 U/L (46-116) Troponin I Quantitative < 0.017 ng/mL (0.000-0.055) < 0.017 ng/mL (0.000-0.055) < 0.017 ng/mL (0.000-0.055) Total Protein 7.3 g/dL (6.4-8.2) Albumin 3.7 g/dL (3.4-5.0) Albumin/Globulin Ratio 1.0 (1.0-1.7) Thyroid Stimulating Hormone (TSH) 1.446 uIU/mL (0.358-3.74) Urine Collection Type Unknown Urine Color Yellow Urine Clarity Clear Urine pH 7.0 Urine Specific [place] 1.015 Urine Protein Negative mg/dL (NEG-TRACE) Urine Glucose (UA) Negative mg/dL (NEG) Urine Ketones (Stick) 15 mg/dL (NEG) Urine Blood Negative (NEG) Urine Nitrite Negative (NEG) Urine Bilirubin Negative (NEG) Urine Urobilinogen Dipstick 1.0 mg/dL (0.2 mg/dL) Urine Leukocyte Esterase Trace (NEG) Urine RBC 6-10 /HPF (0-2) Urine WBC 1-4 /HPF (0-4) Urine Squamous Epithelial Cells Few /LPF Urine Bacteria 0 /HPF (0-FEW) Urine Mucus Slight /LPF Laboratory Tests Test 08/30/18 12:30 08/30/18 14:35 08/30/18 18:00 08/30/18 21:30 White Blood Count 10.0 x10^3/uL (4.0-11.0) Red Blood Count 4.15 x10^6/uL (3.50-5.40) Hemoglobin 13.3 g/dL (12.0-15.5) Hematocrit 40.1 % (36.0-47.0) Mean Corpuscular Volume 97 fL (79-100) Mean Corpuscular Hemoglobin 32 pg (25-35) Mean Corpuscular Hemoglobin Concent 33 g/dL (31-37) Red Cell Distribution Width 14.3 % (11.5-14.5) Platelet Count 239 x10^3/uL (140-400) Neutrophils (%) (Auto) 51 % (31-73) Lymphocytes (%) (Auto) 40 % (24-48) Monocytes (%) (Auto) 7 % (0-9) Eosinophils (%) (Auto) 1 % (0-3) Basophils (%) (Auto) 1 % (0-3) Neutrophils # (Auto) 5.1 x10^3uL (1.8-7.7) Lymphocytes # (Auto) 4.0 x10^3/uL (1.0-4.8) Monocytes # (Auto) 0.7 x10^3/uL (0.0-1.1) Eosinophils # (Auto) 0.1 x10^3/uL (0.0-0.7) Basophils # (Auto) 0.1 x10^3/uL (0.0-0.2) Sodium Level 142 mmol/L (136-145) Potassium Level 4.1 mmol/L (3.5-5.1) Chloride Level 104 mmol/L (98-107) Carbon Dioxide Level 25 mmol/L (21-32) Anion Gap 13 (6-14) Blood Urea Nitrogen 30 mg/dL (7-20) Creatinine 1.3 mg/dL (0.6-1.0) Estimated GFR (Cockcroft-Gault) 39.4 BUN/Creatinine Ratio 23 (6-20) Glucose Level 88 mg/dL (70-99) Calcium Level 9.3 mg/dL (8.5-10.1) Magnesium Level 2.0 mg/dL (1.8-2.4) Total Bilirubin 0.6 mg/dL (0.2-1.0) Aspartate Amino Transf (AST/SGOT) 17 U/L (15-37) Alanine Aminotransferase (ALT/SGPT) 19 U/L (14-59) Alkaline Phosphatase 63 U/L (46-116) Troponin I Quantitative < 0.017 ng/mL (0.000-0.055) < 0.017 ng/mL (0.000-0.055) < 0.017 ng/mL (0.000-0.055) Total Protein 7.3 g/dL (6.4-8.2) Albumin 3.7 g/dL (3.4-5.0) Albumin/Globulin Ratio 1.0 (1.0-1.7) Thyroid Stimulating Hormone (TSH) 1.446 uIU/mL (0.358-3.74) Urine Collection Type Unknown Urine Color Yellow Urine Clarity Clear Urine pH 7.0 Urine Specific [place] 1.015 Urine Protein Negative mg/dL (NEG-TRACE) Urine Glucose (UA) Negative mg/dL (NEG) Urine Ketones (Stick) 15 mg/dL (NEG) Urine Blood Negative (NEG) Urine Nitrite Negative (NEG) Urine Bilirubin Negative (NEG) Urine Urobilinogen Dipstick 1.0 mg/dL (0.2 mg/dL) Urine Leukocyte Esterase Trace (NEG) Urine RBC 6-10 /HPF (0-2) Urine WBC 1-4 /HPF (0-4) Urine Squamous Epithelial Cells Few /LPF Urine Bacteria 0 /HPF (0-FEW) Urine Mucus Slight /LPF Medications Current Medications Metoprolol Tartrate (Lopressor) 50 mg 1X ONCE PO Last administered on at 13:49; Start 08/30/18 at 13:30; Stop 08/30/18 at 13:31; Status DC Aspirin (Children'S Aspirin) 324 mg 1X ONCE PO Last administered on 08/30/18at 17:06; Start 08/30/18 at 14:45; Stop 08/30/18 at 14:46; Status DC Calcium/Vitamin D (Oscal D 500mg/ 200uts) 1 tab DAILY PO ; Start 08/31/18 at 09: 00 Latanoprost (Xalatan) 1 drop QHS OU ; Start 08/30/18 at 21:00 Lisinopril (Prinivil) 5 mg DAILY PO ; Start 08/31/18 at 09:00 Atorvastatin Calcium (Lipitor) 10 mg QHS PO Last administered on 08/30/18at 21: 05; Start 08/30/18 at 21:00 Pantoprazole Sodium (Protonix) 40 mg 3X/WEEK PO ; Start 08/31/18 at 09:00 Active Scripts Active Reported Latanoprost 2.5 Ml Drops 1 Drop EACHEYE QHS Protonix (Pantoprazole Sodium) 40 Mg 40 Mg PO 3X/WEEK Calcium 600 + Vit D 200 Tablet (Calcium Carbonate/Vitamin D3) 1 Each Tablet 1 Each PO DAILY Lovastatin 40 Mg Tablet 40 Mg PO HS Lisinopril 5 Mg Tablet 5 Mg PO DAILY Vitals/I & O Vital Sign - Last 24 Hours 08/30/18 08/30/18 08/30/18 08/30/18 12:24 13:48 13:49 14:30 Temp 98.6 98.6 Pulse 72 93 66 60 Resp 16 18 20 B/P (MAP) 141/74 (96) 116/63 (80) 116/63 120/59 (79) Pulse Ox 99 97 100 O2 Delivery Room Air Room Air Room Air 08/30/18 08/30/18 08/30/18 08/30/18 15:00 15:30 16:30 17:03 Pulse 58 60 60 63 Resp 24 18 B/P (MAP) 146/63 (90) 156/67 (96) 143/66 (91) Pulse Ox 96 96 98 O2 Delivery Room Air Room Air Room Air Room Air 08/30/18 08/30/18 08/30/18 08/31/18 18:00 20:00 23:46 03:48 Temp 98.0 97.6 98.1 98.0 97.6 98.1 Pulse 65 60 110 Resp 18 18 18 B/P (MAP) 130/71 (90) 140/70 (93) 114/45 (68) Pulse Ox 98 97 97 O2 Delivery Room Air Room Air Room Air Room Air 08/31/18 08/31/18 08/31/18 08/31/18 07:00 09:11 09:11 09:12 Temp 97.8 97.8 Pulse 75 65 60 86 Resp 18 B/P (MAP) 133/46 (75) 123/51 (75) 101/44 (63) 127/61 (83) Pulse Ox 97 O2 Delivery Room Air 08/31/18 11:10 Temp 97.4 97.4 Pulse 96 Resp 18 B/P (MAP) 115/58 (77) Pulse Ox 96 O2 Delivery Room Air Intake and Output 08/30/18 08/30/18 08/31/18 15:00 23:00 07:00 Intake Total 1000 ml 0 ml Output Total 300 ml Balance 1000 ml -300 ml CHRISTINA LANDERS III DO Aug 31, 2018 11:52
[2018-08-31] MEDS: CALCIUM CARB/VIT D3 500/200 TABLET. PO SCH (11:55)
[2018-08-31] MEDS: LISINOPRIL 5 MG TABLET. PO SCH (11:56)
[2018-08-31] MEDS: METOPROLOL TART IMMED RELEASE 25 MG TABLET. PO SCH ×2 (11:57→20:38)
[2018-08-31] MEDS: FLECAINIDE ACETATE 50 MG TABLET. PO SCH ×2 (11:57→20:37)
--- NOTE | 2018-08-31 12:07 | PDOC2 ---
CONSULT Date of Consult Date of Consult DATE: 08/31/18 TIME: 12:01 Reason for Consult Reason for Consult: NAY Referring Physician Referring Physician: ANSHUL Identification/Chief Complaint Chief Complaint NEARLY PASSING OUT Source Source: Chart review History of Present Illness Reason for Visit: THIS IS AN 78 YR OLD WITH NEARLY PASSING OUT. ALSO NOTED TO HAVE PALPITATIONS AND CHEST HEAVINESS. HEMODYNAMICALLY STABLE WHILE HERE. HER CR IS 1.3. SHE HAS NOT CKD NOTED. UA IS CLEAN. HAS BP AND ON MEDS INCLUDING LISINOPRIL. NO NEPHROTOXINS AND NO OTHER PERTINENT HX. HAS HAD SOME MILD NAY IN THE PAST BUT RESOLVED WITH HYDRATION Past Medical History Cardiovascular: HTN, Hyperlipidemia GI: GERD Heme/Onc: Anemia NOS Musculoskeletal: Osteoarthritis, Other (DDD) ENT: Other (Glaucoma) Renal/: Acute renal failure Endocrine: Diabetes Past Surgical History Past Surgical History: Appendectomy, Cholecystectomy, Cataract Removal, Total hip replacement (right ), Total knee replacement (bilateral ), Tonsillectomy, Colon Resection, Other (back surgery) Family History Family History: Hypertension Social History No ALCOHOL: none Drugs: None Lives: with Family Current Medications Current Medications Current Medications Metoprolol Tartrate (Lopressor) 50 mg 1X ONCE PO Last administered on at 13:49; Start 08/30/18 at 13:30; Stop 08/30/18 at 13:31; Status DC Aspirin (Children'S Aspirin) 324 mg 1X ONCE PO Last administered on 08/30/18at 17:06; Start 08/30/18 at 14:45; Stop 08/30/18 at 14:46; Status DC Calcium/Vitamin D (Oscal D 500mg/ 200uts) 1 tab DAILY PO Last administered on at 11:55; Start 08/31/18 at 09:00 Latanoprost (Xalatan) 1 drop QHS OU ; Start 08/30/18 at 21:00 Lisinopril (Prinivil) 5 mg DAILY PO Last administered on 08/31/18at 11:56; Start 08/31/18 at 09:00 Atorvastatin Calcium (Lipitor) 10 mg QHS PO Last administered on 08/30/18at 21: 05; Start 08/30/18 at 21:00 Pantoprazole Sodium (Protonix) 40 mg 3X/WEEK PO Last administered on 08/31/18at 11:55; Start 08/31/18 at 09:00 Flecainide Acetate (Tambocor) 50 mg Q12HR PO Last administered on 08/31/18at 11: 57; Start 08/31/18 at 12:00 Metoprolol Tartrate (Lopressor) 12.5 mg BID PO Last administered on 08/31/18at 11:57; Start 08/31/18 at 12:00 Active Scripts Active Reported Latanoprost 2.5 Ml Drops 1 Drop EACHEYE QHS Protonix (Pantoprazole Sodium) 40 Mg Granpkt.dr 40 Mg PO 3X/WEEK Calcium 600 + Vit D 200 Tablet (Calcium Carbonate/Vitamin D3) 1 Each Tablet 1 Each PO DAILY Lovastatin 40 Mg Tablet 40 Mg PO HS Lisinopril 5 Mg Tablet 5 Mg PO DAILY Allergies Allergies: Coded Allergies: No Known Drug Allergies (Unverified , 03/23/17) ROS General: YES: Fatigue, Appetite PSYCHOLOGICAL ROS: YES: Anxiety, Depression Eyes: Yes Decreased vision HEENT: YES: Dmitriy ALLERGY AND IMMUNOLOGY: YES: Seasonal Allergies Respiratory: YES: Cough Cardiovascular: yes Chest Pain, yes Palpitations, yes Lt Headedness Gastrointestinal: Yes Constipation Genitourinary: YES Other (NOCTURIA) Musculoskeletal: Yes Muscular Weakness Neurological: Yes Weakness Skin: Yes Dry Skin Physical Exam General: Alert, Oriented X3, Cooperative, No acute distress HEENT: Atraumatic, PERRLA, EOMI, Mucous membr. moist/pink Lungs: Clear to auscultation, Normal air movement Heart: Regular rate, Normal S1, Normal S2 Abdomen: Normal bowel sounds Extremities: No clubbing Skin: No breakdown Neuro: Normal speech, Cranial nerves 3-12 NL Psych/Mental Status: Mental status NL, Mood NL MUSCULOSKELETAL: No joint tenderness, No deformity, No swelling Vitals VITALS Vital Signs Date Time Temp Pulse Resp B/P (MAP) Pulse Ox O2 Delivery O2 Flow Rate FiO2 08/31/18 11:57 68 134/59 08/31/18 11:10 97.4 18 96 Room Air 97.4 Labs Labs Laboratory Tests Test 08/30/18 12:30 08/30/18 14:35 08/30/18 18:00 08/30/18 21:30 White Blood Count 10.0 x10^3/uL (4.0-11.0) Red Blood Count 4.15 x10^6/uL (3.50-5.40) Hemoglobin 13.3 g/dL (12.0-15.5) Hematocrit 40.1 % (36.0-47.0) Mean Corpuscular Volume 97 fL (79-100) Mean Corpuscular Hemoglobin 32 pg (25-35) Mean Corpuscular Hemoglobin Concent 33 g/dL (31-37) Red Cell Distribution Width 14.3 % (11.5-14.5) Platelet Count 239 x10^3/uL (140-400) Neutrophils (%) (Auto) 51 % (31-73) Lymphocytes (%) (Auto) 40 % (24-48) Monocytes (%) (Auto) 7 % (0-9) Eosinophils (%) (Auto) 1 % (0-3) Basophils (%) (Auto) 1 % (0-3) Neutrophils # (Auto) 5.1 x10^3uL (1.8-7.7) Lymphocytes # (Auto) 4.0 x10^3/uL (1.0-4.8) Monocytes # (Auto) 0.7 x10^3/uL (0.0-1.1) Eosinophils # (Auto) 0.1 x10^3/uL (0.0-0.7) Basophils # (Auto) 0.1 x10^3/uL (0.0-0.2) Sodium Level 142 mmol/L (136-145) Potassium Level 4.1 mmol/L (3.5-5.1) Chloride Level 104 mmol/L (98-107) Carbon Dioxide Level 25 mmol/L (21-32) Anion Gap 13 (6-14) Blood Urea Nitrogen 30 mg/dL (7-20) Creatinine 1.3 mg/dL (0.6-1.0) Estimated GFR (Cockcroft-Gault) 39.4 BUN/Creatinine Ratio 23 (6-20) Glucose Level 88 mg/dL (70-99) Calcium Level 9.3 mg/dL (8.5-10.1) Magnesium Level 2.0 mg/dL (1.8-2.4) Total Bilirubin 0.6 mg/dL (0.2-1.0) Aspartate Amino Transf (AST/SGOT) 17 U/L (15-37) Alanine Aminotransferase (ALT/SGPT) 19 U/L (14-59) Alkaline Phosphatase 63 U/L (46-116) Troponin I Quantitative < 0.017 ng/mL (0.000-0.055) < 0.017 ng/mL (0.000-0.055) < 0.017 ng/mL (0.000-0.055) Total Protein 7.3 g/dL (6.4-8.2) Albumin 3.7 g/dL (3.4-5.0) Albumin/Globulin Ratio 1.0 (1.0-1.7) Thyroid Stimulating Hormone (TSH) 1.446 uIU/mL (0.358-3.74) Urine Collection Type Unknown Urine Color Yellow Urine Clarity Clear Urine pH 7.0 Urine Specific [place] 1.015 Urine Protein Negative mg/dL (NEG-TRACE) Urine Glucose (UA) Negative mg/dL (NEG) Urine Ketones (Stick) 15 mg/dL (NEG) Urine Blood Negative (NEG) Urine Nitrite Negative (NEG) Urine Bilirubin Negative (NEG) Urine Urobilinogen Dipstick 1.0 mg/dL (0.2 mg/dL) Urine Leukocyte Esterase Trace (NEG) Urine RBC 6-10 /HPF (0-2) Urine WBC 1-4 /HPF (0-4) Urine Squamous Epithelial Cells Few /LPF Urine Bacteria 0 /HPF (0-FEW) Urine Mucus Slight /LPF Laboratory Tests Test 08/30/18 12:30 08/30/18 14:35 08/30/18 18:00 08/30/18 21:30 White Blood Count 10.0 x10^3/uL (4.0-11.0) Red Blood Count 4.15 x10^6/uL (3.50-5.40) Hemoglobin 13.3 g/dL (12.0-15.5) Hematocrit 40.1 % (36.0-47.0) Mean Corpuscular Volume 97 fL (79-100) Mean Corpuscular Hemoglobin 32 pg (25-35) Mean Corpuscular Hemoglobin Concent 33 g/dL (31-37) Red Cell Distribution Width 14.3 % (11.5-14.5) Platelet Count 239 x10^3/uL (140-400) Neutrophils (%) (Auto) 51 % (31-73) Lymphocytes (%) (Auto) 40 % (24-48) Monocytes (%) (Auto) 7 % (0-9) Eosinophils (%) (Auto) 1 % (0-3) Basophils (%) (Auto) 1 % (0-3) Neutrophils # (Auto) 5.1 x10^3uL (1.8-7.7) Lymphocytes # (Auto) 4.0 x10^3/uL (1.0-4.8) Monocytes # (Auto) 0.7 x10^3/uL (0.0-1.1) Eosinophils # (Auto) 0.1 x10^3/uL (0.0-0.7) Basophils # (Auto) 0.1 x10^3/uL (0.0-0.2) Sodium Level 142 mmol/L (136-145) Potassium Level 4.1 mmol/L (3.5-5.1) Chloride Level 104 mmol/L (98-107) Carbon Dioxide Level 25 mmol/L (21-32) Anion Gap 13 (6-14) Blood Urea Nitrogen 30 mg/dL (7-20) Creatinine 1.3 mg/dL (0.6-1.0) Estimated GFR (Cockcroft-Gault) 39.4 BUN/Creatinine Ratio 23 (6-20) Glucose Level 88 mg/dL (70-99) Calcium Level 9.3 mg/dL (8.5-10.1) Magnesium Level 2.0 mg/dL (1.8-2.4) Total Bilirubin 0.6 mg/dL (0.2-1.0) Aspartate Amino Transf (AST/SGOT) 17 U/L (15-37) Alanine Aminotransferase (ALT/SGPT) 19 U/L (14-59) Alkaline Phosphatase 63 U/L (46-116) Troponin I Quantitative < 0.017 ng/mL (0.000-0.055) < 0.017 ng/mL (0.000-0.055) < 0.017 ng/mL (0.000-0.055) Total Protein 7.3 g/dL (6.4-8.2) Albumin 3.7 g/dL (3.4-5.0) Albumin/Globulin Ratio 1.0 (1.0-1.7) Thyroid Stimulating Hormone (TSH) 1.446 uIU/mL (0.358-3.74) Urine Collection Type Unknown Urine Color Yellow Urine Clarity Clear Urine pH 7.0 Urine Specific [place] 1.015 Urine Protein Negative mg/dL (NEG-TRACE) Urine Glucose (UA) Negative mg/dL (NEG) Urine Ketones (Stick) 15 mg/dL (NEG) Urine Blood Negative (NEG) Urine Nitrite Negative (NEG) Urine Bilirubin Negative (NEG) Urine Urobilinogen Dipstick 1.0 mg/dL (0.2 mg/dL) Urine Leukocyte Esterase Trace (NEG) Urine RBC 6-10 /HPF (0-2) Urine WBC 1-4 /HPF (0-4) Urine Squamous Epithelial Cells Few /LPF Urine Bacteria 0 /HPF (0-FEW) Urine Mucus Slight /LPF Assessment/Plan Assessment/Plan IMP MILD NAY-ATN WITH CR OF 1.3-NO CKD HX SYNCOPE HTN PLAN SYNCOPE EVALUATION LOW FLOW IVF'S CONT WAYNE-I FOR NOW WILL FOLLOW OSCAR TUTTLE MD Aug 31, 2018 12:07
[2018-08-31] MEDS: IV NORMAL SALINE 1000ML BAG 1,000 ML IV SCH (12:22)
--- NOTE | 2018-08-31 12:26 | NUR ---
SS following for discharge planning. SS reviewed pt chart. Pt is from home with spouse and currently on room air. No discharge needs noted at this time. SS will continue to follow for pending discharge needs.
[2018-08-31] MEDS: ATORVASTATIN CALCIUM 10 MG TABLET. PO SCH (20:36)
[2018-09-01] MEDS: IV NORMAL SALINE 1000ML BAG 1,000 ML IV SCH (01:29)
[2018-09-01 03:22] VITALS: BP 96/46
[2018-09-01 05:34] LABS: BASO % 1 % (0-3); EOS # 0.4 x10^3/uL (0.0-0.7); EOS % 5 % (0-3); HEMATOCRIT 34.4 % (36.0-47.0); HEMOGLOBIN 11.6 g/dL (12.0-15.5); LYMPH # 2.1 x10^3/uL (1.0-4.8); LYMPH % 32 % (24-48); MEAN CORPUSCULAR HEMOGLOBIN 32 pg (25-35); MEAN CORPUSCULAR HGB CONC 34 g/dL (31-37); MEAN CORPUSCULAR VOLUME 97 fL (79-100); MONO # 0.7 x10^3/uL (0.0-1.1); MONO % 10 % (0-9); NEUT # 3.5 x10^3uL (1.8-7.7); NEUT % 52 % (31-73); PLATELET COUNT 178 x10^3/uL (140-400); RED BLOOD COUNT 3.56 x10^6/uL (3.50-5.40); RED CELL DISTRIBUTION WIDTH 14.2 % (11.5-14.5); WHITE BLOOD COUNT 6.7 x10^3/uL (4.0-11.0)
[2018-09-01 06:17] LABS: ALBUMIN 2.9 g/dL (3.4-5.0); CALCIUM 8.7 mg/dL (8.5-10.1); CREATININE 1.2 mg/dL (0.6-1.0); GFR 43.2; POTASSIUM 3.7 mmol/L (3.5-5.1); TOTAL BILIRUBIN 0.5 mg/dL (0.2-1.0); TOTAL PROTEIN 5.9 g/dL (6.4-8.2)
[2018-09-01 07:50] VITALS: BP 119/49
[2018-09-01] MEDS: FLECAINIDE ACETATE 50 MG TABLET. PO SCH (08:33)
[2018-09-01] MEDS: CALCIUM CARB/VIT D3 500/200 TABLET. PO SCH (08:34)
[2018-09-01] MEDS: LISINOPRIL 5 MG TABLET. PO SCH (08:34)
[2018-09-01] MEDS: METOPROLOL TART IMMED RELEASE 25 MG TABLET. PO SCH (09:25)
--- NOTE | 2018-09-01 09:26 | PDOC ---
Provider Note Provider Note S: No overnight events. Palpitations less bothersome. No LH/Dizziness. O: VSS: HR 60's Normal heart tones. Occ PAC's Normal lung tones. Tele - Occ PAC's. Impression: 1. PAT 2. Minimal HTN RECS 1. Stop home lisinopril 2. Continue Toprol XL 12.5mg daily 3. Continue Flecainide 50mg bid. 4. Will have an outpt event monitor. 5. Advised not to drive until seen in the office. Ok to DC later today after ambulation CATALINA MCCOY MD Sep 01, 2018 09:26
--- NOTE | 2018-09-01 10:59 | PDOC ---
Renal-Progress Notes Subjective Notes Notes NONE History of Present Illness Hx of present illness STABLE Vitals Vitals Vital Signs Date Time Temp Pulse Resp B/P (MAP) Pulse Ox O2 Delivery O2 Flow Rate FiO2 09/01/18 09:25 51 119/49 09/01/18 07:50 97.9 12 93 Room Air 97.9 Weight Weight [ ] I.O. Intake and Output Intake and Output 09/01/18 07:00 Intake Total 2700 ml Output Total 2900 ml Balance -200 ml Intake Oral 1800 ml IV Total 900 ml Output Urine Total 2900 ml Labs Labs Laboratory Tests Test 09/01/18 04:00 White Blood Count 6.7 x10^3/uL (4.0-11.0) Red Blood Count 3.56 x10^6/uL (3.50-5.40) Hemoglobin 11.6 g/dL (12.0-15.5) Hematocrit 34.4 % (36.0-47.0) Mean Corpuscular Volume 97 fL (79-100) Mean Corpuscular Hemoglobin 32 pg (25-35) Mean Corpuscular Hemoglobin Concent 34 g/dL (31-37) Red Cell Distribution Width 14.2 % (11.5-14.5) Platelet Count 178 x10^3/uL (140-400) Neutrophils (%) (Auto) 52 % (31-73) Lymphocytes (%) (Auto) 32 % (24-48) Monocytes (%) (Auto) 10 % (0-9) Eosinophils (%) (Auto) 5 % (0-3) Basophils (%) (Auto) 1 % (0-3) Neutrophils # (Auto) 3.5 x10^3uL (1.8-7.7) Lymphocytes # (Auto) 2.1 x10^3/uL (1.0-4.8) Monocytes # (Auto) 0.7 x10^3/uL (0.0-1.1) Eosinophils # (Auto) 0.4 x10^3/uL (0.0-0.7) Basophils # (Auto) 0.0 x10^3/uL (0.0-0.2) Sodium Level 142 mmol/L (136-145) Potassium Level 3.7 mmol/L (3.5-5.1) Chloride Level 107 mmol/L (98-107) Carbon Dioxide Level 24 mmol/L (21-32) Anion Gap 11 (6-14) Blood Urea Nitrogen 28 mg/dL (7-20) Creatinine 1.2 mg/dL (0.6-1.0) Estimated GFR (Cockcroft-Gault) 43.2 BUN/Creatinine Ratio 23 (6-20) Glucose Level 109 mg/dL (70-99) Calcium Level 8.7 mg/dL (8.5-10.1) Total Bilirubin 0.5 mg/dL (0.2-1.0) Aspartate Amino Transf (AST/SGOT) 16 U/L (15-37) Alanine Aminotransferase (ALT/SGPT) 16 U/L (14-59) Alkaline Phosphatase 52 U/L (46-116) Total Protein 5.9 g/dL (6.4-8.2) Albumin 2.9 g/dL (3.4-5.0) Albumin/Globulin Ratio 1.0 (1.0-1.7) Review of Systems Constitutional: yes: alert, oriented Ears/Nose/Throat: Yes: no symptom reported Eyes: Yes: no symptom reported Pulmonary: Yes no symptom reported Cardiovascular: Yes no symptom reported Gastrointestional: Yes: no symptom reported Genitourinary: Yes: no symptom reported Musculoskeletal: Yes: no symptom reported Psychiatric/Neurological: Yes: no symptom reported Endocrine: Yes: no symptom reported Physical Exam General Appearance: no apparent distress Respiratory: bilateral CTA Heart: S1S2, RRR Abdomen: soft, bowel sounds present Genitourinary: bladder flat Extremities: pulses present Neurology: alert, oriented Musculoskeletal: Osteoarthritis, Other (DDD) Assessment Assessment IMP MILD NAY-ATN -IMPROVING WITH CR OF 1.2 SYNCOPE HTN PLAN STOP IVF'S CONT WAYNE-I FOR NOW WILL FOLLOW PRN OSCAR TUTTLE MD Sep 01, 2018 10:59
[2018-09-01 11:30] VITALS: BP 137/55
[2018-09-01] MEDS ORDERED: FLEC100T PO (11:32)
[2018-09-01] MEDS ORDERED: METO25TA4 PO (11:33)
--- NOTE | 2018-09-01 11:42 | PDOC ---
PROGRESS NOTES Chief Complaint Chief Complaint Palpitations and near syncope History of Present Illness History of Present Illness pt seen and examined in her room. no acute distress. alert, oriented, and cooperative. admitted for palpitations and near syncopal episode after grocery store. additional symptoms included nausea/anorexia for 3 days. upon initial work-up - CXR clear. reports a near syncopal episode after grocery shopping. cardiology, nephrology, and neurology are following. 09/01: cleared by cardiology. plan to discharge this afternoon. Vitals Vitals Vital Signs Date Time Temp Pulse Resp B/P (MAP) Pulse Ox O2 Delivery O2 Flow Rate FiO2 09/01/18 09:25 51 119/49 09/01/18 07:50 97.9 12 93 Room Air 97.9 Physical Exam General: Alert, Oriented X3, Cooperative, No acute distress Heart: Regular rate, Normal S1, Normal S2, No murmurs Lungs: Clear, Other Abdomen: Soft, No tenderness Extremities: No edema, Normal pulses Skin: No breakdown, No significant lesion Labs LABS Laboratory Tests Test 09/01/18 04:00 White Blood Count 6.7 x10^3/uL (4.0-11.0) Red Blood Count 3.56 x10^6/uL (3.50-5.40) Hemoglobin 11.6 g/dL (12.0-15.5) Hematocrit 34.4 % (36.0-47.0) Mean Corpuscular Volume 97 fL (79-100) Mean Corpuscular Hemoglobin 32 pg (25-35) Mean Corpuscular Hemoglobin Concent 34 g/dL (31-37) Red Cell Distribution Width 14.2 % (11.5-14.5) Platelet Count 178 x10^3/uL (140-400) Neutrophils (%) (Auto) 52 % (31-73) Lymphocytes (%) (Auto) 32 % (24-48) Monocytes (%) (Auto) 10 % (0-9) Eosinophils (%) (Auto) 5 % (0-3) Basophils (%) (Auto) 1 % (0-3) Neutrophils # (Auto) 3.5 x10^3uL (1.8-7.7) Lymphocytes # (Auto) 2.1 x10^3/uL (1.0-4.8) Monocytes # (Auto) 0.7 x10^3/uL (0.0-1.1) Eosinophils # (Auto) 0.4 x10^3/uL (0.0-0.7) Basophils # (Auto) 0.0 x10^3/uL (0.0-0.2) Sodium Level 142 mmol/L (136-145) Potassium Level 3.7 mmol/L (3.5-5.1) Chloride Level 107 mmol/L (98-107) Carbon Dioxide Level 24 mmol/L (21-32) Anion Gap 11 (6-14) Blood Urea Nitrogen 28 mg/dL (7-20) Creatinine 1.2 mg/dL (0.6-1.0) Estimated GFR (Cockcroft-Gault) 43.2 BUN/Creatinine Ratio 23 (6-20) Glucose Level 109 mg/dL (70-99) Calcium Level 8.7 mg/dL (8.5-10.1) Total Bilirubin 0.5 mg/dL (0.2-1.0) Aspartate Amino Transf (AST/SGOT) 16 U/L (15-37) Alanine Aminotransferase (ALT/SGPT) 16 U/L (14-59) Alkaline Phosphatase 52 U/L (46-116) Total Protein 5.9 g/dL (6.4-8.2) Albumin 2.9 g/dL (3.4-5.0) Albumin/Globulin Ratio 1.0 (1.0-1.7) Review of Systems Review of Systems general: no fever, no chills, no acute distress. cardiac: no palpitations today, no chest pain, no arrhythmia, no murmur respiratory: no shortness of breath, no wheezing, no rhonchi/rales/crackles. skin: dry, intact, no rash. Assessment and Plan Assessmemt and Plan Assessment 1. Near syncope 2. Palpitations 3. Azotemia Plan 1. IV hydration 2. monitor labs 3. home meds 4. PT/OT 5.nephrology, cardiology, neurology following 6. plan to discharge this afternoon. Comment Review of Relevant I have reviewed the following items [place] (where applicable) has been applied. Labs Laboratory Tests Test 08/30/18 12:30 08/30/18 14:35 08/30/18 18:00 08/30/18 21:30 White Blood Count 10.0 x10^3/uL (4.0-11.0) Red Blood Count 4.15 x10^6/uL (3.50-5.40) Hemoglobin 13.3 g/dL (12.0-15.5) Hematocrit 40.1 % (36.0-47.0) Mean Corpuscular Volume 97 fL (79-100) Mean Corpuscular Hemoglobin 32 pg (25-35) Mean Corpuscular Hemoglobin Concent 33 g/dL (31-37) Red Cell Distribution Width 14.3 % (11.5-14.5) Platelet Count 239 x10^3/uL (140-400) Neutrophils (%) (Auto) 51 % (31-73) Lymphocytes (%) (Auto) 40 % (24-48) Monocytes (%) (Auto) 7 % (0-9) Eosinophils (%) (Auto) 1 % (0-3) Basophils (%) (Auto) 1 % (0-3) Neutrophils # (Auto) 5.1 x10^3uL (1.8-7.7) Lymphocytes # (Auto) 4.0 x10^3/uL (1.0-4.8) Monocytes # (Auto) 0.7 x10^3/uL (0.0-1.1) Eosinophils # (Auto) 0.1 x10^3/uL (0.0-0.7) Basophils # (Auto) 0.1 x10^3/uL (0.0-0.2) Sodium Level 142 mmol/L (136-145) Potassium Level 4.1 mmol/L (3.5-5.1) Chloride Level 104 mmol/L (98-107) Carbon Dioxide Level 25 mmol/L (21-32) Anion Gap 13 (6-14) Blood Urea Nitrogen 30 mg/dL (7-20) Creatinine 1.3 mg/dL (0.6-1.0) Estimated GFR (Cockcroft-Gault) 39.4 BUN/Creatinine Ratio 23 (6-20) Glucose Level 88 mg/dL (70-99) Calcium Level 9.3 mg/dL (8.5-10.1) Magnesium Level 2.0 mg/dL (1.8-2.4) Total Bilirubin 0.6 mg/dL (0.2-1.0) Aspartate Amino Transf (AST/SGOT) 17 U/L (15-37) Alanine Aminotransferase (ALT/SGPT) 19 U/L (14-59) Alkaline Phosphatase 63 U/L (46-116) Troponin I Quantitative < 0.017 ng/mL (0.000-0.055) < 0.017 ng/mL (0.000-0.055) < 0.017 ng/mL (0.000-0.055) Total Protein 7.3 g/dL (6.4-8.2) Albumin 3.7 g/dL (3.4-5.0) Albumin/Globulin Ratio 1.0 (1.0-1.7) Thyroid Stimulating Hormone (TSH) 1.446 uIU/mL (0.358-3.74) Urine Collection Type Unknown Urine Color Yellow Urine Clarity Clear Urine pH 7.0 Urine Specific [place] 1.015 Urine Protein Negative mg/dL (NEG-TRACE) Urine Glucose (UA) Negative mg/dL (NEG) Urine Ketones (Stick) 15 mg/dL (NEG) Urine Blood Negative (NEG) Urine Nitrite Negative (NEG) Urine Bilirubin Negative (NEG) Urine Urobilinogen Dipstick 1.0 mg/dL (0.2 mg/dL) Urine Leukocyte Esterase Trace (NEG) Urine RBC 6-10 /HPF (0-2) Urine WBC 1-4 /HPF (0-4) Urine Squamous Epithelial Cells Few /LPF Urine Bacteria 0 /HPF (0-FEW) Urine Mucus Slight /LPF Test 09/01/18 04:00 White Blood Count 6.7 x10^3/uL (4.0-11.0) Red Blood Count 3.56 x10^6/uL (3.50-5.40) Hemoglobin 11.6 g/dL (12.0-15.5) Hematocrit 34.4 % (36.0-47.0) Mean Corpuscular Volume 97 fL (79-100) Mean Corpuscular Hemoglobin 32 pg (25-35) Mean Corpuscular Hemoglobin Concent 34 g/dL (31-37) Red Cell Distribution Width 14.2 % (11.5-14.5) Platelet Count 178 x10^3/uL (140-400) Neutrophils (%) (Auto) 52 % (31-73) Lymphocytes (%) (Auto) 32 % (24-48) Monocytes (%) (Auto) 10 % (0-9) Eosinophils (%) (Auto) 5 % (0-3) Basophils (%) (Auto) 1 % (0-3) Neutrophils # (Auto) 3.5 x10^3uL (1.8-7.7) Lymphocytes # (Auto) 2.1 x10^3/uL (1.0-4.8) Monocytes # (Auto) 0.7 x10^3/uL (0.0-1.1) Eosinophils # (Auto) 0.4 x10^3/uL (0.0-0.7) Basophils # (Auto) 0.0 x10^3/uL (0.0-0.2) Sodium Level 142 mmol/L (136-145) Potassium Level 3.7 mmol/L (3.5-5.1) Chloride Level 107 mmol/L (98-107) Carbon Dioxide Level 24 mmol/L (21-32) Anion Gap 11 (6-14) Blood Urea Nitrogen 28 mg/dL (7-20) Creatinine 1.2 mg/dL (0.6-1.0) Estimated GFR (Cockcroft-Gault) 43.2 BUN/Creatinine Ratio 23 (6-20) Glucose Level 109 mg/dL (70-99) Calcium Level 8.7 mg/dL (8.5-10.1) Total Bilirubin 0.5 mg/dL (0.2-1.0) Aspartate Amino Transf (AST/SGOT) 16 U/L (15-37) Alanine Aminotransferase (ALT/SGPT) 16 U/L (14-59) Alkaline Phosphatase 52 U/L (46-116) Total Protein 5.9 g/dL (6.4-8.2) Albumin 2.9 g/dL (3.4-5.0) Albumin/Globulin Ratio 1.0 (1.0-1.7) Laboratory Tests Test 09/01/18 04:00 White Blood Count 6.7 x10^3/uL (4.0-11.0) Red Blood Count 3.56 x10^6/uL (3.50-5.40) Hemoglobin 11.6 g/dL (12.0-15.5) Hematocrit 34.4 % (36.0-47.0) Mean Corpuscular Volume 97 fL (79-100) Mean Corpuscular Hemoglobin 32 pg (25-35) Mean Corpuscular Hemoglobin Concent 34 g/dL (31-37) Red Cell Distribution Width 14.2 % (11.5-14.5) Platelet Count 178 x10^3/uL (140-400) Neutrophils (%) (Auto) 52 % (31-73) Lymphocytes (%) (Auto) 32 % (24-48) Monocytes (%) (Auto) 10 % (0-9) Eosinophils (%) (Auto) 5 % (0-3) Basophils (%) (Auto) 1 % (0-3) Neutrophils # (Auto) 3.5 x10^3uL (1.8-7.7) Lymphocytes # (Auto) 2.1 x10^3/uL (1.0-4.8) Monocytes # (Auto) 0.7 x10^3/uL (0.0-1.1) Eosinophils # (Auto) 0.4 x10^3/uL (0.0-0.7) Basophils # (Auto) 0.0 x10^3/uL (0.0-0.2) Sodium Level 142 mmol/L (136-145) Potassium Level 3.7 mmol/L (3.5-5.1) Chloride Level 107 mmol/L (98-107) Carbon Dioxide Level 24 mmol/L (21-32) Anion Gap 11 (6-14) Blood Urea Nitrogen 28 mg/dL (7-20) Creatinine 1.2 mg/dL (0.6-1.0) Estimated GFR (Cockcroft-Gault) 43.2 BUN/Creatinine Ratio 23 (6-20) Glucose Level 109 mg/dL (70-99) Calcium Level 8.7 mg/dL (8.5-10.1) Total Bilirubin 0.5 mg/dL (0.2-1.0) Aspartate Amino Transf (AST/SGOT) 16 U/L (15-37) Alanine Aminotransferase (ALT/SGPT) 16 U/L (14-59) Alkaline Phosphatase 52 U/L (46-116) Total Protein 5.9 g/dL (6.4-8.2) Albumin 2.9 g/dL (3.4-5.0) Albumin/Globulin Ratio 1.0 (1.0-1.7) Medications Current Medications Metoprolol Tartrate (Lopressor) 50 mg 1X ONCE PO Last administered on 13:49; Start 08/30/18 at 13:30; Stop 08/30/18 at 13:31; Status DC Aspirin (Children'S Aspirin) 324 mg 1X ONCE PO Last administered on 08/30/18 17:06; Start 08/30/18 at 14:45; Stop 08/30/18 at 14:46; Status DC Calcium/Vitamin D (Oscal D 500mg/ 200uts) 1 tab DAILY PO Last administered on 08:34; Start 08/31/18 at 09:00 Latanoprost (Xalatan) 1 drop QHS OU ; Start 08/30/18 at 21:00; Stop 08/31/18 at 12:13; Status DC Lisinopril (Prinivil) 5 mg DAILY PO Last administered on 09/01/18 08:34; Start 08/31/18 at 09:00 Atorvastatin Calcium (Lipitor) 10 mg QHS PO Last administered on 08/31/18at 20: 36; Start 08/30/18 at 21:00 Pantoprazole Sodium (Protonix) 40 mg 3X/WEEK PO Last administered on 08/31/18 11:55; Start 08/31/18 at 09:00 Flecainide Acetate (Tambocor) 50 mg Q12HR PO Last administered on 09/01/18 08: 33; Start 08/31/18 at 12:00 Metoprolol Tartrate (Lopressor) 12.5 mg BID PO Last administered on 09/01/18 09:25; Start 08/31/18 at 12:00 Sodium Chloride 1,000 ml @ 75 mls/hr [id number] IV Last administered on 01:29; Start 08/31/18 at 12:15 Active Scripts Active Reported Metoprolol Tartrate 25 Mg Tablet 12.5 Mg PO BID Flecainide Acetate 100 Mg Tablet 50 Mg PO BID Latanoprost 2.5 Ml Drops 1 Drop EACHEYE QHS Protonix (Pantoprazole Sodium) 40 Mg Granpkt.dr 40 Mg PO 3X/WEEK Calcium 600 + Vit D 200 Tablet (Calcium Carbonate/Vitamin D3) 1 Each Tablet 1 Each PO DAILY Lovastatin 40 Mg Tablet 40 Mg PO HS Vitals/I & O Vital Sign - Last 24 Hours 08/31/18 08/31/18 08/31/18 08/31/18 11:56 11:57 11:57 14:51 Temp 98.0 98.0 Pulse 98 76 68 56 Resp 18 B/P (MAP) 134/59 134/59 134/59 103/41 (61) Pulse Ox 95 O2 Delivery Room Air 08/31/18 08/31/18 08/31/18 08/31/18 19:45 20:00 20:37 20:38 Temp 98.6 98.6 Pulse 58 58 58 Resp 21 B/P (MAP) 113/41 (65) 113/41 113/41 Pulse Ox 93 O2 Delivery Room Air Room Air 08/31/18 09/01/18 09/01/18 09/01/18 23:38 03:22 07:40 07:50 Temp 97.9 97.9 97.9 97.9 97.9 97.9 Pulse 54 56 51 Resp 22 20 12 B/P (MAP) 105/44 (64) 96/46 (63) 119/49 (72) Pulse Ox 96 95 93 O2 Delivery Room Air Room Air Room Air Room Air 09/01/18 09/01/18 09/01/18 08:33 08:34 09:25 Pulse 51 51 51 B/P (MAP) 119/49 119/49 119/49 Intake and Output 08/31/18 08/31/18 09/01/18 14:59 22:59 06:59 Intake Total 0 ml 1600 ml 1100 ml Output Total 900 ml 1000 ml 1000 ml Balance -900 ml 600 ml 100 ml CHRISTINA LANDERS K III DO Sep 01, 2018 11:42
--- NOTE | 2018-09-01 13:23 | NUR ---
patients iv removed and cotton ginner off. discharge instructions discussed with patient. patient has no questions at this time. flecanide and metoprolol prescriptions called into [facility]. patient escorted to daughters vehicle per wheelchair by kike kendrick. patient stable at time of discharge.
--- NOTE | 2018-09-03 12:37 | EKG ---
[facility] [address] [place] [address] Test Date: 2018-08-30 Test Time: 12:27:18 Pat Name: OLVIN IRAHETA Department: Room: Gender: F Evp And Chief Operating Officer: : 1940 Requested By: RODRIGUEZ GODDARD Order Number: [id number] Reading MD: Measurements Intervals [place] Rate: P: CA: QRS: QRSD: T: QT: QTc: Interpretive Statements
== END 2018-09-01 13:34 | disposition home or self-care (01) | DRG 308 ==
LOC: ER 12:07 → ED HOLD 14:06 → 2 SOUTH 18:24
PROVIDERS: ADMIT Internal Medicine; ATTEND Internal Medicine
DX: I47.1 Supraventricular tachycardia (principal); N17.0 Acute kidney failure with tubular necrosis; E11.22 Type 2 diabetes mellitus with diabetic chronic kidney disease; E78.00 Pure hypercholesterolemia, unspecified; E78.5 Hyperlipidemia, unspecified; H40.9 Unspecified glaucoma; I12.9 Hypertensive chronic kidney disease with stage 1 through stage 4 chronic kidney disease, or unspecified chronic kidney disease; K21.9 Gastro-esophageal reflux disease without esophagitis; E55.9 Vitamin D deficiency, unspecified; M19.90 Unspecified osteoarthritis, unspecified site; M81.0 Age-related osteoporosis without current pathological fracture; N18.9 Chronic kidney disease, unspecified; Z82.49 Family history of ischemic heart disease and other diseases of the circulatory system; Z87.11 Personal history of peptic ulcer disease; Z90.710 Acquired absence of both cervix and uterus; Z96.641 Presence of right artificial hip joint; Z96.653 Presence of artificial knee joint, bilateral; Z90.49 Acquired absence of other specified parts of digestive tract
CPT/HCPCS: 36415; 71045; 80053; 81001; 83735; 84443; 84484; 85025; 87086; 93005; 93306; J7030; 97530; 97535; 99285-25

== ENCOUNTER → 2018-12-11 | Outpatient (CLI) | payer MEDICARE ==
[~2018-12-11] MED LIST changes: +ACET500T68 PO; +FLEC100T PO; +LATA2.5D3 EACHEYE; +METO25TA4 PO; +OMEG1CAP29 PO; +PANT40GR PO
[2018-12-11 10:04] LABS: BASO # 0.1 x10^3/uL (0.0-0.2); BASO % 1 % (0-3); EOS # 0.3 x10^3/uL (0.0-0.7); EOS % 3 % (0-3); HEMATOCRIT 40.2 % (36.0-47.0); HEMOGLOBIN 13.3 g/dL (12.0-15.5); LYMPH # 2.1 x10^3/uL (1.0-4.8); LYMPH % 28 % (24-48); MEAN CORPUSCULAR HEMOGLOBIN 32 pg (25-35); MEAN CORPUSCULAR HGB CONC 33 g/dL (31-37); MEAN CORPUSCULAR VOLUME 97 fL (79-100); MONO # 0.5 x10^3/uL (0.0-1.1); MONO % 7 % (0-9); NEUT # 4.6 x10^3uL (1.8-7.7); NEUT % 61 % (31-73); PLATELET COUNT 226 x10^3/uL (140-400); RED BLOOD COUNT 4.16 x10^6/uL (3.50-5.40); RED CELL DISTRIBUTION WIDTH 14.2 % (11.5-14.5); WHITE BLOOD COUNT 7.5 x10^3/uL (4.0-11.0)
[2018-12-11 10:04] LABS: BILIRUBIN,URINE NEGATIVE (NEG); CLARITY,URINE CLEAR; COLOR,URINE YELLOW; NITRITE,URINE NEGATIVE (NEG); PH,URINE 6.5; PROTEIN,URINE NEGATIVE (NEG-TRACE); UROBILINOGEN,URINE 0.2 mg/dL (0.2 mg/dL)
[2018-12-11 10:09] LABS: ALBUMIN 3.8 g/dL (3.4-5.0); CALCIUM 9.5 mg/dL (8.5-10.1); CREATININE 1.2 mg/dL (0.6-1.0); GFR 43.2; POTASSIUM 3.9 mmol/L (3.5-5.1)
[2018-12-11 10:12] LABS: PROTHROMBIN TIME PATIENT 12.2 SEC (11.7-14.0)
[2018-12-11 10:26] LABS: BACTERIA,URINE FEW /HPF (0-FEW); SQUAMOUS EPITHELIAL CELL,UR FEW /LPF
== END | disposition home or self-care (01) ==
LOC: SURGPAT 13:11
PROVIDERS: ATTEND Orthopaedic Surgery
DX: Z01.818 Encounter for other preprocedural examination (principal); M16.12 Unilateral primary osteoarthritis, left hip; I12.9 Hypertensive chronic kidney disease with stage 1 through stage 4 chronic kidney disease, or unspecified chronic kidney disease; E11.22 Type 2 diabetes mellitus with diabetic chronic kidney disease; N18.9 Chronic kidney disease, unspecified; Z79.899 Other long term (current) drug therapy
CPT/HCPCS: 36415; 80048; 81001; 82040; 82306; 85025; 85610; 85651; 85730; 87086; 87641

== ENCOUNTER 2018-12-25 06:03 | Inpatient (IN) | payer MEDICARE ==
[~2018-12-25] VITALS: Ht 165.1 cm; Wt 86.6 kg
[~2018-12-25 06:03] MED LIST changes: +ACETAMINOPHEN 500 MG TABLET PO PRN; +CELECOXIB 100 MG CAPSULE. PO PRN; +MORPHINE SULFATE 5 MG, KETOROLAC 30MG VIAL 30 MG, ROPIVacaine 0.5% PF 60 ML, EPINEPHrin... INT ART ONE; +TRANEXAMIC ACID 1,000 MG in IV NS 50ML -- 1ST BAG INJ ONE
[2018-12-25] MEDS ORDERED: IV RINGERS,LACTATED 1000ML 1,000 ML IV SCH (07:00)
[2018-12-25] MEDS ORDERED: HYDROmorphone 2 MG/ML VIAL IV PRN (07:00)
[2018-12-25] MEDS ORDERED: MORPHINE SULFATE 2 MG/ML VIAL. IV PRN ×2 (07:00→07:15)
[2018-12-25] MEDS ORDERED: fentaNYL PF VIAL 100 MCG/2 ML VIAL IV PRN ×3 (07:00→07:15)
[2018-12-25] MEDS ORDERED: ONDANSETRON PF 4 MG/2 ML VIAL. IV PRN (07:00)
[2018-12-25] MEDS ORDERED: PROCHLORPERAZINE 10 MG/2 ML VIAL. IV PRN (07:00)
[2018-12-25 07:10] LABS: PROTHROMBIN TIME PATIENT 12.9 SEC (11.7-14.0)
[2018-12-25] MEDS ORDERED: oxyCODONE IR 5 MG TABLET PO PRN (07:15)
[2018-12-25] MEDS ORDERED: DEXTROSE 50% 25 GM / 50ML DISP.SYRIN. IV PRN (07:15)
[2018-12-25] MEDS ORDERED: CALCIUM CARBONATE 500 MG TAB.CHEW PO PRN (07:15)
[2018-12-25] MEDS ORDERED: PROPOFOL 20 ML IV ONE (07:15)
[2018-12-25] MEDS ORDERED: 0.9 % SODIUM CHLORIDE 10 ML DISP.SYRIN. IV PRN (07:15)
[2018-12-25] MEDS ORDERED: LIDOCAINE 2% PF 5 ML VIAL. ONE (07:15)
[2018-12-25] MEDS ORDERED: DEXAMETHASONE SOD PHOS 4 MG/ML VIAL ONE (07:15)
[2018-12-25] MEDS ORDERED: ROCURONIUM 50 MG/5 ML VIAL. ONE (07:15)
[2018-12-25] MEDS ORDERED: diphenhydrAMINE 50 MG/ML VIAL IV PRN (07:15)
[2018-12-25] MEDS ORDERED: ZOLPIDEM 5 MG TABLET. PO PRN (07:15)
[2018-12-25] MEDS ORDERED: PROCHLORPERAZINE 5 MG TABLET. PO PRN (07:15)
[2018-12-25] MEDS ORDERED: ePHEDrine PF IN SALINE 50 MG/10 ML SYRINGE. IV ONE (07:52)
[2018-12-25] MEDS ORDERED: TRANEXAMIC ACID 1,000 MG in IV NS 50ML -- 2ND BAG INJ ONE (08:00)
[2018-12-25] MEDS ORDERED: NEOSTIGMINE METHYLSULFATE 5 MG/5 ML SYRINGE. ONE (09:03)
[2018-12-25] MEDS ORDERED: GLYCOPYRROLATE 1 MG/5 ML VIAL. ONE (09:03)
[2018-12-25 11:05] VITALS: BP 128/77
--- NOTE | 2018-12-25 11:05 | NUR ---
Arrived to unit by bed from PACU. Awakens easily. No c/o at this time. Rating pain 4/10. Left hip dressing intact with MANNY/Hemovac drain. Able to move all extremities, pedal pulses + bilaterally and warm to touch. GERMAN's and SCD on bilaterally. IVF's intact and infusing. Side rails up x's 2 with call light in reach. Family at bedside. Cont. monitor.
--- NOTE | 2018-12-25 11:19 | RAD ---
EXAM: AP pelvis DATE: 12/25/2018 7:01 AM INDICATION: Arthroplasty COMPARISON: No Prior FINDINGS/ IMPRESSION: 1. Changes of left total hip arthroplasty are in good alignment without definite hardware competition or fracture. Acetabular screw extends partially into the pelvis. Expected soft tissue changes are seen including drain. 2. Right hip arthroplasty, in good alignment without definite evidence for hardware complication or acute fracture. Electronically signed by: Alexis Blackman MD (12/25/2018 11:16 AM) [id number]
[2018-12-25 11:35] VITALS: BP 130/71
[2018-12-25] MEDS: ONDANSETRON PF 4 MG/2 ML VIAL. IV SCH ×2 (12:00→17:45)
[2018-12-25] MEDS: ONDANSETRON ODT 4 MG TAB.RAPDIS. PO SCH ×2 (12:00→17:46)
[2018-12-25 12:35] VITALS: BP 117/69
[2018-12-25] MEDS ORDERED: IV NORMAL SALINE 1000ML BAG 1,000 ML IV SCH (13:00)
[2018-12-25 13:28] VITALS: BP 110/66
[2018-12-25 14:29] VITALS: BP 101/69
[2018-12-25] MEDS ORDERED: WARFARIN 7.5 MG TABLET. PO ONE (16:00)
[2018-12-25] MEDS ORDERED: WARFARIN 5 MG TABLET. PO ONE (16:00)
--- NOTE | 2018-12-25 17:17 | PDOC4 ---
Operative Note Operative Note Date of surgery: 12/25/2018 Preoperative diagnosis: DJD left hip Postoperative diagnosis: Same Operative procedure: Left total hip arthroplasty Surgeon: Renetta Assist: Silvina Anesthesia: Gen. Estimated blood loss: 400 mL Complications: None Specimens: Femoral head to pathology Drains: Hemovac and intra-articular catheter. Operative indications: Please see my detailed preoperative history and physical and previous clinic notes for detailed operative indications Operative text: Patient was identified procedure verified patient placed in the supine position on the operating table. After adequate amounts of general anesthesia were administered she was placed in the decubitus position left side up with the Stulberg hip positioners in the left hip prepped and draped in standard sterile fashion. After timeout was performed patient procedure identified and verified a curvilinear incision was made over the left hip centered on the greater trochanter extending down and dividing the iliotibial band and gluteal fascia in line with their fibers. A Charnley retractor was placed external rotators were divided from their insertion hip capsule was split in a T fashion and the hip was dislocated. Femoral neck cut was made with the neck cutting guide and she was found to have severe degenerative change and deformity of the femoral head which was sent for pathological evaluation. The acetabulum was exposed labrum and contents of the fovea were excised and suc cessive size reaming was carried up to a size 52 excess osteophytes were trimmed off in proper version with an osteotome and edges were lightly touched with a 53 mm reamer and a 54 mm outer diameter hemispherical 3-hole sticktight coated Garnica [employer] Nephew shell was placed in proper version with the alignment guide screw fixation was accomplished superiorly and a 36 mm 0 acetabular liner was impacted into place. The femur was then reamed and broached with a size 13 stem trial fit best reproduction of her offset and leg length was accomplished with a high offset component -3 and 36 mm head. Excellent stability was noted to over 75 internal rotation at 90 hip flexion. Trial components were then removed and after thorough irrigation with normal saline solution and pulse lavage a size 13 Synergy porous-coated high offset femoral component was impacted into place in proper version and a cobalt-chromium 36 mm -3 femoral head was impacted into place to engage the Moe taper and was reduced and found to have equivalent leg length offset and stability as noted above. Thorough irrigation again carried out normal saline solution pain catheter mixture injected throughout the joint capsule hip capsule was repaired with #5 Lebon suture external rotators were reattached transosseously as well Hemovac drain and pain catheter were placed the fascia was closed with #2 Ethibond suture and reinforced with #1 PDS strata fix suture subcutaneous closure with buried Vicryl in a layered fashion skin closure with subcuticular Monocryl and a evelyn dressing with Acticoat was placed patient was returned to recovery room in stable condition having tolerated procedure well. Silvina cunningham was present for the procedure and assisted in prepping draping patient positioning retraction and skin closure SARAH CARDONA MD Dec 25, 2018 17:17
[2018-12-25] MEDS: KETOROLAC 30MG VIAL 30 MG, BUPIVACAINE MPF 0.25% 20 ML, EPINEPHrine 0.5 MG in TOTAL VOL... INT ART SCH (17:41)
[2018-12-25 18:14] VITALS: BP 118/69
[2018-12-25] MEDS: ATORVASTATIN CALCIUM 10 MG TABLET. PO SCH (21:03)
[2018-12-25] MEDS: METOPROLOL TART IMMED RELEASE 25 MG TABLET. PO SCH (21:03)
[2018-12-26 04:32] LABS: HEMATOCRIT 28.4 % (36.0-47.0); HEMOGLOBIN 9.7 g/dL (12.0-15.5)
[2018-12-26 04:55] LABS: PROTHROMBIN TIME PATIENT 17.3 SEC (11.7-14.0)
[2018-12-26] MEDS: KETOROLAC 30MG VIAL 30 MG, BUPIVACAINE MPF 0.25% 20 ML, EPINEPHrine 0.5 MG in TOTAL VOL... INT ART SCH (05:25)
[2018-12-26 06:00] VITALS: BP 97/60
[2018-12-26] MEDS: ONDANSETRON ODT 4 MG TAB.RAPDIS. PO SCH ×2 (06:00)
[2018-12-26] MEDS: ONDANSETRON PF 4 MG/2 ML VIAL. IV SCH ×2 (06:00)
[2018-12-26] MEDS ORDERED: MAGNESIUM HYDROXIDE 2,400 MG/30 ML ORAL.SUSP. PO PRN (06:00)
[2018-12-26] MEDS: FERROUS SULFATE 325 MG TABLET. PO SCH ×2 (08:18→16:45)
[2018-12-26] MEDS: PANTOPRAZOLE 40 MG TABLET.DR. PO SCH (08:18)
[2018-12-26] MEDS: MULTIVITAMIN with MINERAL TABLET. PO SCH (08:18)
[2018-12-26] MEDS: SENNOSIDES/DOCUSATE 8.6/50MG TABLET. PO SCH (08:19)
[2018-12-26] MEDS: ACETAMINOPHEN 500 MG TABLET PO SCH ×3 (08:19→20:52)
[2018-12-26] MEDS: METOPROLOL TART IMMED RELEASE 25 MG TABLET. PO SCH ×2 (08:20→22:22)
--- NOTE | 2018-12-26 11:35 | NUR ---
Pharmacy Warfarin Dosing Note S: Pharmacy consulted to assist with anticoagulation therapy started 12/25/18 O: OLVIN IRAHETA is a 78 year old F with TONYA LABS: Last INR: 1.4 Last HGB: 9.7 Last HCT: 28.4 Last PLT: - Last dose of 5 mg given on 12/25/18 at 1629 A:INR of 1.4 is below desired range. Target range for this patient is: 1.6 - 2.5 P: Warfarin dose: 3 mg Today at 1600 Bridge Therapy: None Next INR due 12/27/18 AM Pharmacy anticoagulation service will continue to follow. JAYCEE DOMINIQUE RP, 12/26/18 [id number]
[2018-12-26 12:00] VITALS: BP 109/65
[2018-12-26] MEDS ORDERED: ONDANSETRON ODT 4 MG TAB.RAPDIS. PO PRN (12:00)
[2018-12-26] MEDS ORDERED: ONDANSETRON PF 4 MG/2 ML VIAL. IV PRN (12:00)
[2018-12-26] MEDS ORDERED: WARFARIN 3 MG TABLET. PO ONE (16:00)
[2018-12-26] MEDS ORDERED: BISACODYL 10 MG SUPP.RECT. PR PRN (16:00)
--- NOTE | 2018-12-26 17:17 | NUR ---
Up in chair watching TV. No c/o at this time. Pt refusing anything stronger than Tylenol for pain. Rating pain at 0/10 at this time. Cont. monitor.
[2018-12-26 18:11] VITALS: BP 118/51
--- NOTE | 2018-12-26 18:58 | PDOC ---
PROGRESS NOTES Subjective Subjective Problems overnight: Minimal pain getting up and around reasonably well with assistance Objective Vital Signs Vital Signs Date Time Temp Pulse Resp B/P (MAP) Pulse Ox O2 Delivery O2 Flow Rate FiO2 12/26/18 18:11 98.2 66 16 118/51 (73) 98 Room Air 98.2 12/25/18 10:00 10 Physical Exam Kim dressing clean dry intact leg lengths appear equal distal neurovascular status intact Labs Laboratory Tests Test 12/25/18 06:18 12/26/18 04:15 Prothrombin Time 12.9 SEC (11.7-14.0) 17.3 SEC (11.7-14.0) Prothromb Time International Ratio 1.0 (0.8-1.1) 1.4 (0.8-1.1) Activated Partial Thromboplast Time 30 SEC (24-38) Hemoglobin 9.7 g/dL (12.0-15.5) Hematocrit 28.4 % (36.0-47.0) Mean Corpuscular Hemoglobin Concent 34 g/dL (31-37) Laboratory Tests Test 12/26/18 04:15 Hemoglobin 9.7 g/dL (12.0-15.5) Hematocrit 28.4 % (36.0-47.0) Mean Corpuscular Hemoglobin Concent 34 g/dL (31-37) Prothrombin Time 17.3 SEC (11.7-14.0) Prothromb Time International Ratio 1.4 (0.8-1.1) Imaging Postop x-rays show leg length and offset very close left hip implant and acetabular component well-positioned Assessment Assessment POD# [1], S/P [left total hip arthroplasty] Plan Plan of Care Mobilize as tolerated weightbearing as tolerated standard total hip precautions Coumadin anticoagulation Initial plans for postoperative placement include home with home health as patient indicates that she wants to go home and has the assistance of her sons who will be rotating to take care of her SARAH CARDONA MD Dec 26, 2018 18:58
[2018-12-26] MEDS: ATORVASTATIN CALCIUM 10 MG TABLET. PO SCH (20:52)
--- NOTE | 2018-12-26 20:54 | NUR ---
B/P 102/64, pulse 76. Metoprolol held at this time per Patient request. Will reassess later.
[2018-12-26] MEDS: oxyCODONE IR 5 MG TABLET PO PRN (22:22)
--- NOTE | 2018-12-26 22:22 | NUR ---
Patient assisted to restroom and C/o pain. Rechecked B/P 111/64, Pulse 66. Patient declined Metoprolol. Pain medication given.
[2018-12-27] MEDS: ACETAMINOPHEN 500 MG TABLET PO SCH ×4 (03:01→21:12)
[2018-12-27 04:37] LABS: HEMATOCRIT 26.3 % (36.0-47.0); HEMOGLOBIN 9.2 g/dL (12.0-15.5)
[2018-12-27 04:40] LABS: PROTHROMBIN TIME PATIENT 25.8 SEC (11.7-14.0)
[2018-12-27 06:20] VITALS: BP 97/63
[2018-12-27] MEDS: FERROUS SULFATE 325 MG TABLET. PO SCH ×2 (08:05→16:24)
[2018-12-27] MEDS: MULTIVITAMIN with MINERAL TABLET. PO SCH (08:05)
[2018-12-27] MEDS: SENNOSIDES/DOCUSATE 8.6/50MG TABLET. PO SCH (08:05)
[2018-12-27] MEDS: METOPROLOL TART IMMED RELEASE 25 MG TABLET. PO SCH ×2 (08:06→21:12)
--- NOTE | 2018-12-27 10:16 | NUR ---
Pharmacy Warfarin Dosing Note S:Pharmacy consulted to assist with anticoagulation therapy started 12/25/18 with target INR: 1.6 - 2.5 O:IRAHETAOLVIN is a 78 year old F with TONYA LABS: Last INR: 2.4 Last HGB: 9.2 Last HCT: 26.3 Last PLT: - Last dose of 3 mg given on 12/26/18 at 1645 Previous Regimen: Vitamin K given: N Drug Interaction Changes: None Ongoing Drug Interactions: A:INR of 2.4 is below desired range. Target range for this patient is: 1.6 - 2.5 P: Warfarin dose: Hold Today at 1600 Bridge Therapy: None Next INR due IN AM Pharmacy anticoagulation service will continue to follow. GONZALO BALL [facility], 12/27/18 1016
[2018-12-27] MEDS: oxyCODONE IR 5 MG TABLET PO PRN ×2 (14:17→22:21)
[2018-12-27 18:01] VITALS: BP 101/61
--- NOTE | 2018-12-27 18:06 | PATHOLOGY ---
[facility] Accession Number: [id number] . 01 Material submitted: . hip - LEFT HIP BONE. Modifiers: left . 01 Clinical history: . Osteoarthritis . 02 Diagnosis: Femoral head and separate segments of bone, soft tissue, and bone shavings, left hip arthroplasty: - Degenerative arthritis. (JPM/db; 12/27/2018) LBQ/12/27/2018 . 02 Electronically signed: . Bernard Reis MD, Pathologist NPI- [id number] . 01 Gross description: . Received in formalin, labeled" Jeff Bonner, left hip bone ", is an intact femoral head (4.0 cm diameter x 4.0 cm height) with femoral neck (1.8 cm length and 3.8 cm maximum diameter). The articular surface is pitted, flannery and granular with the cartilage measuring up to 0.2 cm thick. Extensive eburnation and peripheral osteophytes are present. The soft tissue is shaggy and flannery-pink soft tissue with possible synovial villi. The subchondral bone is yellow, with porous bony trabeculae. The margin of excision is smooth and the exposed trabecular bone is spongy and yellow. Also received is a segment of cortical bone measuring 3.0 cm with an average 0.3 cm thickness and multiple dark brown hemorrhagic possible bone shavings measuring 7.5 x 7.0 x 2.0 cm in aggregate. Representatively submitted after decalcification as follows: A1. Femoral head. A2. Cortical bone and hemorrhagic fragments. (SWS; 12/25/2018) SHS/SHS . 02 Pathologist provided ICD-10: M16.12 . 02 CPT . 068380, [id number] Specimen Comment: A courtesy copy of this report has been sent to Specimen Comment: [phone], . Specimen Comment: Report sent to / DR SALGADO Performed at: 01 [facility] [address], [place] [id number] MD Randell Carrasco MD Phone: [phone] Performed at: 02 [facility] [address] [place], [place] [id number] MD Bernard Reis MD Phone: [phone]
[2018-12-27] MEDS: ATORVASTATIN CALCIUM 10 MG TABLET. PO SCH (21:12)
--- NOTE | 2018-12-27 22:23 | PDOC ---
PROGRESS NOTES Subjective Subjective Problems overnight: She is getting around well but says she is more sore today. Nursing staff notes that she seems to put off taking any pain medication until her pain is quite severe Objective Vital Signs Vital Signs Date Time Temp Pulse Resp B/P (MAP) Pulse Ox O2 Delivery O2 Flow Rate FiO2 12/27/18 21:12 55 102/47 12/27/18 20:30 Room Air 12/27/18 18:01 98.6 16 98 98.6 12/25/18 10:00 10 Physical Exam On exam evelyn dressing is clean dry intact leg lengths are equal distal neurovascular status is intact Labs Laboratory Tests Test 12/26/18 04:15 12/27/18 04:25 Hemoglobin 9.7 g/dL (12.0-15.5) 9.2 g/dL (12.0-15.5) Hematocrit 28.4 % (36.0-47.0) 26.3 % (36.0-47.0) Mean Corpuscular Hemoglobin Concent 34 g/dL (31-37) 35 g/dL (31-37) Prothrombin Time 17.3 SEC (11.7-14.0) 25.8 SEC (11.7-14.0) Prothromb Time International Ratio 1.4 (0.8-1.1) 2.4 (0.8-1.1) Laboratory Tests Test 12/27/18 04:25 Hemoglobin 9.2 g/dL (12.0-15.5) Hematocrit 26.3 % (36.0-47.0) Mean Corpuscular Hemoglobin Concent 35 g/dL (31-37) Prothrombin Time 25.8 SEC (11.7-14.0) Prothromb Time International Ratio 2.4 (0.8-1.1) Assessment Assessment POD# [2], S/P [left total hip arthroplasty] Plan Plan of Care Continue mobilize weightbearing as tolerated standard total hip precautions Coumadin anticoagulation Planned home health followed by outpatient physical therapy on discharge SARAH CARDONA MD Dec 27, 2018 22:23
[2018-12-28] MEDS: ACETAMINOPHEN 500 MG TABLET PO SCH ×2 (04:25→09:23)
[2018-12-28] MEDS: oxyCODONE IR 5 MG TABLET PO PRN (04:25)
[2018-12-28 06:25] VITALS: BP 91/58
[2018-12-28 07:40] LABS: HEMOGLOBIN 9.5 g/dL (12.0-15.5)
[2018-12-28 08:07] LABS: PROTHROMBIN TIME PATIENT 20.9 SEC (11.7-14.0)
[2018-12-28] MEDS: METOPROLOL TART IMMED RELEASE 25 MG TABLET. PO SCH (08:34)
[2018-12-28] MEDS: SENNOSIDES/DOCUSATE 8.6/50MG TABLET. PO SCH (09:23)
[2018-12-28] MEDS: PANTOPRAZOLE 40 MG TABLET.DR. PO SCH (09:23)
[2018-12-28] MEDS: FERROUS SULFATE 325 MG TABLET. PO SCH (09:23)
[2018-12-28] MEDS: MULTIVITAMIN with MINERAL TABLET. PO SCH (09:23)
--- NOTE | 2018-12-28 10:50 | NUR ---
Pharmacy Warfarin Dosing Note S:Pharmacy consulted to assist with anticoagulation therapy started 12/25/18 with target INR: 1.6 - 2.5 O:MYRTLEROBINAEUGENE is a 78 year old F with TONYA LABS: Last INR: 1.8 Last HGB: 9.5 Last HCT: 28.0 Last PLT: - Last dose of Hold given on 12/27/18 at 1600 Previous Regimen: Vitamin K given: N Drug Interaction Changes: None Ongoing Drug Interactions: A:INR of 1.8 is within desired range. Target range for this patient is: 1.6 - 2.5 P: Warfarin dose: 2 mg Bridge Therapy: None Next INR due next Monday Pharmacy anticoagulation service will continue to follow. GONZALO BALL [facility], 12/28/18 [id number]
[2018-12-28] MEDS ORDERED: WARFARIN 2 MG TABLET. PO ONE (13:00)
[2018-12-28] MEDS ORDERED: OXYC5CAP PO (13:06)
--- NOTE | 2018-12-28 13:09 | SNU/HH DC ---
DISCHARGE WITH HOME HEALTH DISCHARGE INFORMATION: Condition on Discharge: Stable CODE STATUS: Code Status: Full HOME HEALTH: Face to Face: I certify this patient is under my care and that I, or a nurse practitioner or physician's seed analysis laboratory assistant working with me, had a face to face encounter that meets the physician face to face encounter requirements with this patient on [12/28/18]. Medical Complications: S/P Joint Replacement RN For Eval/Treatment: Yes Physical Therapy For: Evalulation/Treatment Pt Meets Homebound Status: Limited distance walking POST DISCHARGE ORDERS: Activity Instructions for Disc: Activity as tolerated Weight Bearing Status after Di: As tolerated (maintain total hip precautions) Wound/Incision Care: Ice to area for comfort, Keep wound/cast CDI, Do not change dressing Other wound/incision instructi: DO NOT change MANNY dressing. It is to remain in place for two weeks. CHECKS AFTER DISCHARGE: Checks after discharge: Check blood press - daily FOLLOW-UP: Follow Up With: Dr Jackson in 10-14 days [phone]. Warfarin Follow UP: : [facility] [phone] CERTIFICATION STATEMENT: Certification Statement: Certification Statement: Based on the above finding, I certify that this patient is confined to the home and needs intermittent half-way care, physical therapy and/or speech therapy, or continues to need occupational therapy.~ This patient is under my care, and I have initiated the establishment of the plan of care.~ This patient will be followed by myself or a community physician who will periodically review the plan of care. Home Meds Reported Medications [place]-3/Dha/Epa/Fish Oil (FISH OIL 500 MG SOFTGEL) 1 Each Capsule, 1 EACH PO DAILY for SUPPLEMENT, CAP 12/07/18 Multivits-Min/Fa/Lycopene/Lut (CENTRUM SILVER TABLET) 1 Each Tablet, 1 EACH PO DAILY for SUPPLEMENT, TAB 12/07/18 Acetaminophen (ACETAMINOPHEN) 500 Mg Tablet, 500 MG PO PRN TID PRN for PAIN, TAB 12/07/18 Metoprolol Tartrate (METOPROLOL TARTRATE) 25 Mg Tablet, 25 MG PO BID for FOR HYPERTENSION, #60 TAB 0 Refills 09/01/18 Pantoprazole Sodium (PROTONIX) 40 Mg , 40 MG PO 3X/WEEK, TAB 08/30/18 Calcium Carbonate/Vitamin D3 (CALCIUM 600 + VIT D 200 TABLET) 1 Each Tablet, 1 EACH PO DAILY, TAB 05/02/17 Lovastatin (LOVASTATIN) 40 Mg Tablet, 40 MG PO HS, TAB 05/02/17 SARAH JACKSON MD Dec 28, 2018 13:09
[2018-12-28] MEDS ORDERED: WARF2TAB96 PO (13:14)
[2018-12-28 14:23] VITALS: BP 112/69
--- NOTE | 2018-12-28 14:32 | NUR ---
Patient left in a wheelchair around 1430 with her daughter, son, and . She left with all her belongings. Discharge education completed by this nurse, pharmacy, therapy, human services case manager, and her doctor. MANNY dressing care reviewed with her and her daughter. Coumadin dosing and lab draws were gone over by this nurse as well as therapy. Home health scheduled to see patient tomorrow and then OPT will start on the january here. No concerns noted upon discharge. Script given to the patient for oxycodone.
== END 2018-12-28 14:30 | disposition home health service (06) | DRG 470 ==
LOC: OPSVCIP 06:03 → 4 SOUTHEST 11:20
PROVIDERS: ADMIT Orthopaedic Surgery; ATTEND Orthopaedic Surgery
PROC: 0SRB02Z Replacement of Left Hip Joint with Metal on Polyethylene Synthetic Substitute, Open Approach (ICD-10-PCS; principal; 2018-12-25 07:30)
DX: M16.12 Unilateral primary osteoarthritis, left hip (principal); I10 Essential (primary) hypertension; E78.00 Pure hypercholesterolemia, unspecified; Z96.651 Presence of right artificial knee joint; Z96.641 Presence of right artificial hip joint; Z96.652 Presence of left artificial knee joint; Z90.710 Acquired absence of both cervix and uterus
CPT/HCPCS: 36415; 72170; 85014; 85018; 85610; 85730; 86850; 86900; 86901; 88304; 88311; A7015; J0171; J0696; J1100; J1885; J2001; J2270; J2704; J2710; J2795; J3010; J3490; J7030; J7120; 97110; 97116; 97150; 97530; 97535

== ENCOUNTER → 2020-09-25 | Outpatient (CLI) | payer MEDICARE, OTHER ==
[2018-12-27 08:06] VITALS: BP 98/62
[~2020-09-25] MED LIST changes: -ACETAMINOPHEN 500 MG TABLET PO PRN; +CALC-627 PO; -CALC1TAB75 PO; -CELECOXIB 100 MG CAPSULE. PO PRN; -LISI-338 PO; +LISI-517 PO; +LISI10TA16 PO; -LISI10TA2 PO; -MAGN400T3 PO; +MAGN400T5 PO; -MORPHINE SULFATE 5 MG, KETOROLAC 30MG VIAL 30 MG, ROPIVacaine 0.5% PF 60 ML, EPINEPHrin... INT ART ONE; +OMEP40CA45 PO; -OMEP40CA5 PO; +OXYC5CAP PO; -PANT40TA3 PO; +PANT40TA77 PO; -TRANEXAMIC ACID 1,000 MG in IV NS 50ML -- 1ST BAG INJ ONE; -WARF-78 PO; +WARF2TAB96 PO; +WARF5TAB2 PO
--- NOTE | 2020-09-25 10:18 | CARD ---
MR#: [id number] Date of Study: 09/25/2020 Ordering Physician: CATALINA MCCOY, Referring Physician: CATALINA MCCOY, Tech: Fouzia Levine, RUST APPROVED REPORT EXAM: Two-dimensional and M-mode echocardiogram with Doppler and color Doppler. Other Information Quality : AverageHR: 66bpm INDICATION LV Function:Diastolic Diastolic Heart Failure RISK FACTORS Hypertension Hyperlipidemia 2D DIMENSIONS RVDd3.6 (2.9-3.5cm)Left Atrium(2D)3.5 (1.6-4.0cm) IVSd0.8 (0.7-1.1cm)Aortic Root(2D)3.4 (2.0-3.7cm) LVDd5.6 (3.9-5.9cm)LVOT Diameter2.0 (1.8-2.4cm) PWd1.0 (0.7-1.1cm)LVDs3.0 (2.5-4.0cm) FS (%) 47.1 %SV118.7 ml LVEF(%)67.9 (>50%) Aortic Valve AoV Peak Pieter.165.7cm/sAoV VTI40.8cm AO Peak GR.11.0mmHgLVOT Peak Pieter.125.1cm/s AO Mean GR.6mmHgAVA (VMAX)2.35cm2 AI P 1/2 [id number] Mitral Valve MV E Ldxmylee95.0cm/sMV DECEL SUDO658at MV A Ahzqbgrl314.7cm/sE/A Ratio0.6 Pulmonary Valve PV Peak Kjekzxfk23.8cm/s Tricuspid Valve TR P. Bumkkmor876oj/sRAP WTIIVJHM3twVc TR Peak Gr.23eiZrXDNZ66gbIs Pulmonary Vein S1 Xuqoauli72.7cm/sD2 Pmipurvf93.6cm/s PVa ernyrobu862qbwg LEFT VENTRICLE The left ventricle is normal size. There is normal left ventricular wall thickness. The left ventricu lar systolic function is normal. The Ejection Fraction is 60%. There is normal LV segmental wall omid on. Transmitral Doppler flow pattern is Grade I-abnormal relaxation pattern. RIGHT VENTRICLE The right ventricle is normal size. There is normal right ventricular wall thickness. The right ventr icular systolic function is normal. ATRIA The left atrium size is normal. The right atrium size is normal. The interatrial septum is intact wit h no evidence for an atrial septal defect or patent foramen ovale as noted on 2-D or Doppler imaging. AORTIC VALVE The aortic valve is normal in structure and function. Doppler and Color Flow revealed trace aortic re gurgitation. There is no significant aortic valvular stenosis. Calculated aortic valve area is 2.3 cm 2 with maximum pressure gradient of 11 mmHg and mean pressure gradient of 6 mmHg. MITRAL VALVE The mitral valve is normal in structure and function. There is no evidence of mitral valve prolapse. There is no mitral valve stenosis. Doppler and Color-flow revealed trace mitral regurgitation. TRICUSPID VALVE The tricuspid valve is normal in structure and function. Doppler and Color Flow revealed trace tricus pid regurgitation with an estimated PAP of 28 mmHg. There is no tricuspid valve stenosis. PULMONIC VALVE The pulmonic valve is not well visualized. Doppler and Color Flow revealed no pulmonic valvular regur gitation. GREAT VESSELS The aortic root is normal in size. The IVC is normal in size and collapses >50% with inspiration. PERICARDIAL EFFUSION There is no evidence of significant pericardial effusion. Critical Notification Critical Value: No <Conclusion> The left ventricular systolic function is normal. The Ejection Fraction is 60%. There is normal LV segmental wall motion. Transmitral Doppler flow pattern is Grade I-abnormal relaxation pattern. Trace aortic regurgitation. Trace mitral regurgitation. Trace tricuspid regurgitation with an estimated PAP of 28 mmHg. There is no evidence of significant pericardial effusion. Signed by : Tony Sams, Electronically Approved : 09/25/2020 10:18:29
== END ==
LOC: ECHO 07:41
PROVIDERS: ATTEND Internal Medicine Cardiovascular Disease
DX: I50.30 Unspecified diastolic (congestive) heart failure (principal); R60.0 Localized edema
CPT/HCPCS: 93306

== ENCOUNTER → 2020-11-19 | Outpatient (CLI) | payer MEDICARE, OTHER ==
[2018-12-27 08:06] VITALS: BP 98/62
--- NOTE | 2020-11-19 10:43 | RAD ---
MR#: [id number] Date of Study: 11/19/2020 Ordering Physician: CATALINA MCCOY, Referring Physician: CATALINA MCCOY, Tech: Dinesh Levin MBA, RDMS, RVT, RDCS, RTR APPROVED REPORT Bilateral Lower Extremity Venous Study for DVT Patient Location: OUT-PATIENT Indications Lower Extremity Edema: Bilateral Vein Imaging (Right) CFV (R): Compressible SFJ (R): Compressible FEM (R): Compressible POP (R): Compressible DFV (R): Compressible PTV (R): Spontaneous GSV (R): Spontaneous Peroneals (R): Spontaneous Vein Imaging (Left) CFV (L): Compressible SFJ (L): Compressible FEM (L): Compressible POP (L): Compressible DFV (L): Spontaneous PTV (L): Spontaneous GSV (L): Spontaneous Peroneals (L): Spontaneous Doppler Evaluation (Right) CFV (R): Spontaneous POP (R):Spontaneous Doppler Evaluation (Left) CFV (L):Spontaneous POP (L):Spontaneous Findings The bilateral lower extremity deep veins were evaluated for thrombus with color Doppler, spectral and grayscale images. On the right the grayscale images of the common femoral, superficial femoral and popliteal veins do n ot demonstrate any evidence of thrombus and these veins appear to be compressible. The below-knee vei ns were not well visualized but grossly appear to be compressible. Spectral imaging and color Doppler do not reveal any evidence of obstruction to flow with normal respirophasic variation above the knee . Below the knee there is spontaneous flow noted. On the left, the grayscale images of the common femoral, superficial femoral and popliteal veins do n ot demonstrate any evidence of thrombus and these veins appear to be compressible. The below-knee vei ns again were not well visualized but grossly appear to be compressible. Spectral imaging and color D oppler do not reveal any evidence of obstruction to flow with normal respirophasic variation above th e knee. The below-knee veins demonstrate spontaneous flow. Critical Notification Critical Value: No <Conclusion> 1. Negative for DVT in the bilateral lower extremities. 2. Technically difficult study. Signed by : Catalina Mccoy, Electronically Approved : 11/19/2020 10:42:57
--- NOTE | 2020-11-19 10:44 | RAD ---
MR#: [id number] Date of Study: 11/19/2020 Ordering Physician: CATALINA MCCOY, Referring Physician: CATALINA MCCOY, Tech: Dinesh Levin MBA, RDMS, RVT, RDCS, RTR APPROVED REPORT Patient Location : OUT-PATIENT Indications Lower Extremity Edema : Bilateral Findings Grayscale images the bilateral saphenofemoral junctions are grossly unremarkable. The right great sa phenous vein measures 6.3 mm and the left great saphenous vein measures 6.5 mm. The bilateral greate r and lesser saphenous veins did not show any evidence of reflux. Critical Notification Critical Value: No <Conclusion> 1. Negative for reflux in the bilateral greater and lesser saphenous veins. Signed by : Catalina Mccoy, Electronically Approved : 11/19/2020 10:43:50
== END ==
LOC: US 09:29
PROVIDERS: ATTEND Internal Medicine Cardiovascular Disease
DX: I82.433 Acute embolism and thrombosis of popliteal vein, bilateral (principal)
CPT/HCPCS: 93970